=== PATIENT | female | born 1945 | race Caucasian/White ===

== ENCOUNTER → 2016-07-30 | Outpatient (CLI) | payer OTHER ==
[2014-12-04 12:55] VITALS: BP 128/74
--- NOTE | 2016-08-02 09:16 | MRI ---
HISTORY: Chronic low back pain with bilateral facet arthropathy Study: MRI lumbar spine without contrast Comparison: October 22, 2014 Technique: Multiplanar multi-sequence MRI of the lumbar spine was obtained. Sagittal T1, sagittal T 2, and stir weighted images, axial T1, and axial T2 images were obtained. Findings: There is slight anterolisthesis L2 on L3 . The lumbar spine demonstrates otherwise normal alignment with the expected signal characteristics of the bone marrow. The conus of the cord terminates vikram lly. T12 -- L1: No evidence for compressive disc disease. The neural foramina are patent. The joints are normal. L1 -- L2: There is broad-based disc bulging which contributes along with ligamentous hypertrophy and bilateral facet arthropathy to a relative spinal stenosis with lateral recess narrowing bilaterally left worse than right. L2 -- L3: There is slight anterolisthesis L2 on L3 which is associated with broad-based disc bulging and ligamentous hypertrophy and facet arthropathy contributing to a relative spinal stenosis with l ateral recess and foraminal narrowing bilaterally left worse than right. L3 -- L4: No evidence for compressive disc disease. The neural foramina are patent. Bilateral facet arthropathy is present. L4 -- L5: There is partial fusion of the L4 and L5 vertebral bodies with near-complete obliteration of the disc. There is no evidence for compressive disc disease. The neural foramina are patent. The facet joints are partially ankylosed. L5 -- S1: No evidence for compressive disc disease. The neural foramina are patent. The facet joints are ankylosed. IMPRESSION: As above Reported By:
== END ==
LOC: RAD 12:47
PROVIDERS: ATTEND Specialist
DX: M46.89 Other specified inflammatory spondylopathies, multiple sites in spine (principal)
CPT/HCPCS: 72148

== ENCOUNTER → 2016-11-29 | Day surgery (SDC) | payer OTHER ==
[~2016-11-29] MED LIST: KENALOG INJ 40 MG ONE; MARCAINE/EPINEPHRINE ONE; XYLOCAINE-MPF 1% ONE
--- NOTE | 2016-11-29 11:16 | DR.UPDATE ---
H&P Update History and Physical Update: History and Physical reviewed and patient examined. Changes noted: NO Yes with the following:agree with Dr Vogt H&P. will proceed with steroid injecton of right SI joint
[2016-11-29 11:44] VITALS: BP 169/68
== END ==
LOC: SURG1 10:50
PROVIDERS: ATTEND Specialist
PROC: 3E0R3BZ Introduction of Anesthetic Agent into Spinal Canal, Percutaneous Approach (ICD-10-PCS; 2016-11-29)
PROC: 3E0R33Z Introduction of Anti-inflammatory into Spinal Canal, Percutaneous Approach (ICD-10-PCS; principal; 2016-11-29 11:00)
DX: M53.3 Sacrococcygeal disorders, not elsewhere classified (principal)
CPT/HCPCS: S0020; J3301

== ENCOUNTER → 2017-04-21 | Outpatient (CLI) | payer OTHER ==
[2016-11-29 11:44] VITALS: BP 169/68
--- NOTE | 2017-04-21 14:36 | RAD ---
Examination: Chest, PA and lateral views History: Preop Findings: Normal heart size, clear lungs and pleural spaces. Impression: No acute or significant chronic findings. Reported By:
[2017-04-21 14:43] LABS: BILIRUBIN,URINE NEGATIVE (NEGATIVE); BLOOD/HEMOGLOBIN,URINE 2+ (NEGATIVE); GLUCOSE, URINE NEGATIVE (NEGATIVE); KETONES,URINE NEGATIVE (NEGATIVE); LEUKOCYTE ESTERASE ,URINE 1+ (NEGATIVE); NITRITES,URINE POSITIVE (NEGATIVE); PROTEIN,URINE NEGATIVE (NEGATIVE); UROBILINOGEN,URINE NORMAL (NORMAL)
[2017-04-21 14:52] LABS: APPEARANCE,URINE HAZY (CLEAR); BACTERIA,URINE 4+ /HPF (NEGATIVE); COLOR,URINE YELLOW (YELLOW); RBC,URINE 0-2 /HPF (NEGATIVE); SQUAMOUS EPITHELIAL CELL,UR RARE /HPF (NEGATIVE)
[2017-04-21 14:56] LABS: ALANINE AMINOTRANSFERASE 24 Units/L (12-78); ALBUMIN 4.1 g/dL (3.4-5.0); ALKALINE PHOSPHATASE 103 Units/L (46-116); ASPARTATE AMINO TRANSFERASE 14 Units/L (15-37); BLOOD UREA NITROGEN 20 mg/dL (7-18); CALCIUM 9.3 mg/dL (8.5-10.1); CARBON DIOXIDE 28.1 mmol/L (21-32); CHLORIDE 106 mmol/L (98-107); CREATININE 1.22 mg/dL (0.55-1.02); SODIUM 142 mmol/L (136-145); TOTAL PROTEIN 8.2 g/dL (6.4-8.2); eGFR BLACK RACES 56 (>60); eGFR NON BLACK RACES 46 (>60)
[2017-04-21 14:58] LABS: BASOPHILS # (AUTO) 0.1 X10^3/uL (0.0-0.1); BASOPHILS % (AUTO) 1.3 % (0.2-1.0); EOSINOPHILS # (AUTO) 0.1 x10^3/uL (0.0-0.2); HEMATOCRIT 41.5 % (36.0-47.0); HEMOGLOBIN 14.2 g/dL (12.0-16.0); LYMPHOCYTES # (AUTO) 1.9 X10^3/uL (1.3-2.9); LYMPHOCYTES % (AUTO) 22.4 % (21.0-51.0); MEAN CORPUSCULAR HEMOGLOBIN 31.4 pg (27.0-34.0); MEAN CORPUSCULAR HGB CONC 34.2 g/dL (33.0-35.0); MEAN CORPUSCULAR VOLUME 91.7 fL (80.0-100.0); MEAN PLATELET VOLUME 7.2 fL (7.4-11.0); MONOCYTES # (AUTO) 0.5 x10^3/uL (0.3-0.8); MONOCYTES % (AUTO) 6.1 % (0.0-13.0); NEUTROPHILS % (AUTO) 69.2 % (42.0-75.0); PLATELET COUNT 312 X10^3/uL (150.0-450.0); RED BLOOD COUNT 4.52 X10^6/uL (3.5-5.4); RED CELL DISTRIBUTION WIDTH 13.8 % (11.6-16.5); WHITE BLOOD COUNT 8.6 X10^3/uL (3.6-10.0)
[2017-04-21 15:32] LABS: ERYTHROCYTE SEDIMENTATION RATE 17 MM/HOUR (0-20)
== END ==
LOC: LAB 13:59
PROVIDERS: ATTEND Orthopaedic Surgery
DX: Z01.818 Encounter for other preprocedural examination (principal); Z79.899 Other long term (current) drug therapy; Z11.8 Encounter for screening for other infectious and parasitic diseases; Z01.810 Encounter for preprocedural cardiovascular examination; Z01.811 Encounter for preprocedural respiratory examination; M17.12 Unilateral primary osteoarthritis, left knee
CPT/HCPCS: 36415; 71046; 80053; 81001; 85025; 85652; 86140; 86850; 86900; 86901; 87086; 87088; 87186; 87640; 87641; 93005; 93010

== ENCOUNTER → 2017-04-25 | Outpatient (CLI) | payer OTHER ==
[2017-04-25 08:05] VITALS: BMI 26.6
[2017-04-25 08:07] VITALS: BP 152/74
[2017-04-25 08:07] LABS: BILIRUBIN,URINE NEGATIVE (NEGATIVE); BLOOD/HEMOGLOBIN,URINE 1+ (NEGATIVE); GLUCOSE, URINE NEGATIVE (NEGATIVE); KETONES,URINE NEGATIVE (NEGATIVE); LEUKOCYTE ESTERASE ,URINE NEGATIVE (NEGATIVE); NITRITES,URINE NEGATIVE (NEGATIVE); PROTEIN,URINE NEGATIVE (NEGATIVE); UROBILINOGEN,URINE NORMAL (NORMAL)
[2017-04-25 08:18] LABS: APPEARANCE,URINE CLEAR (CLEAR); BACTERIA,URINE NEGATIVE /HPF (NEGATIVE); COLOR,URINE YELLOW (YELLOW); RBC,URINE 0-1 /HPF (NEGATIVE); SQUAMOUS EPITHELIAL CELL,UR FEW /HPF (NEGATIVE)
[2017-04-25 08:19] LABS: HYALINE CASTS, URINE RARE /LPF (NEGATIVE); MUCUS,URINE FEW /HPF (NEGATIVE)
== END ==
LOC: UNDOADMIN 07:31 → MED/SURG 07:31 → LAB 07:32 → EDSTATUS 08:30 → UNDODISIN 09:01
PROVIDERS: ATTEND Internal Medicine
DX: Z01.812 Encounter for preprocedural laboratory examination (principal)
CPT/HCPCS: 81001

== ENCOUNTER → 2017-04-29 | Outpatient (CLI) | payer OTHER ==
[2017-04-25 08:07] VITALS: BP 152/74
[2017-04-29 09:27] LABS: BILIRUBIN,URINE NEGATIVE (NEGATIVE); GLUCOSE, URINE NEGATIVE (NEGATIVE); KETONES,URINE NEGATIVE (NEGATIVE); UROBILINOGEN,URINE NORMAL (NORMAL)
[2017-04-29 09:32] LABS: BLOOD/HEMOGLOBIN,URINE NEGATIVE (NEGATIVE); LEUKOCYTE ESTERASE ,URINE 1+ (NEGATIVE); NITRITES,URINE NEGATIVE (NEGATIVE); PROTEIN,URINE 1+ (NEGATIVE)
[2017-04-29 09:38] LABS: APPEARANCE,URINE CLEAR (CLEAR); COLOR,URINE YELLOW (YELLOW)
== END ==
LOC: LAB 08:25
PROVIDERS: ATTEND Orthopaedic Surgery
DX: Z01.818 Encounter for other preprocedural examination (principal); Z01.812 Encounter for preprocedural laboratory examination; M17.12 Unilateral primary osteoarthritis, left knee
CPT/HCPCS: 81003

== ENCOUNTER 2017-05-02 07:25 | Inpatient (IN) | payer OTHER ==
[2017-05-02] MEDS ORDERED: ANCEF 1 GM IV PREMIX* 1 GM/50 ML BAG IV ONE (07:44)
[2017-05-02] MEDS ORDERED: D5 LR 1000 ML 1,000 ML IV ONE (07:44)
[2017-05-02] MEDS ORDERED: BACTROBAN OINT ONE (07:51)
[2017-05-02] MEDS ORDERED: XYLOCAINE 1% and EPINEPHRINE 1:100,000 ONE (07:51)
[2017-05-02] MEDS ORDERED: MARCAINE 0.25% INJ ONE (07:51)
[2017-05-02 07:57] LABS: BILIRUBIN,URINE NEGATIVE (NEGATIVE); BLOOD/HEMOGLOBIN,URINE NEGATIVE (NEGATIVE); GLUCOSE, URINE NEGATIVE (NEGATIVE); KETONES,URINE NEGATIVE (NEGATIVE); LEUKOCYTE ESTERASE ,URINE NEGATIVE (NEGATIVE); NITRITES,URINE NEGATIVE (NEGATIVE); PROTEIN,URINE NEGATIVE (NEGATIVE); UROBILINOGEN,URINE NORMAL (NORMAL)
[2017-05-02 08:01] LABS: APPEARANCE,URINE CLEAR (CLEAR); COLOR,URINE YELLOW (YELLOW)
[2017-05-02 08:04] LABS: BACTERIA,URINE NEGATIVE /HPF (NEGATIVE); MUCUS,URINE FEW /HPF (NEGATIVE); RBC,URINE 0-1 /HPF (NEGATIVE); SQUAMOUS EPITHELIAL CELL,UR RARE /HPF (NEGATIVE)
[2017-05-02] MEDS ORDERED: MARCAINE 0.5% ONE (08:16)
[2017-05-02 08:18] VITALS: BMI 26.6
[2017-05-02] MEDS ORDERED: KETALAR ONE (08:52)
[2017-05-02] MEDS ORDERED: NS IRRIGATION 3000 ML 3,000 ML with BACITRACIN VIAL 50,000 UNT IR ONE ×4 (09:34)
[2017-05-02] MEDS ORDERED: NS IRRIGATION 1000 ML 1,000 ML with BACITRACIN VIAL 50,000 UNT IR ONE ×2 (09:34)
[2017-05-02] MEDS ORDERED: LR 1000 ML IV 1,000 ML IV ONE (10:36)
[2017-05-02] MEDS ORDERED: MARCAINE 0.5% 52 ML, NS 1000 ML 348 ML IJ PRN ×2 (11:30)
[2017-05-02] MEDS ORDERED: DILAUDID INJ IVP PRN (12:31)
[2017-05-02] MEDS ORDERED: REGLAN INJ 10 MG VIAL IVP PRN (12:31)
[2017-05-02] MEDS ORDERED: ZOFRAN INJ 4 MG VIAL IVP PRN ×2 (12:31→19:34)
[2017-05-02] MEDS ORDERED: PHENERGAN INJ 25 MG IVP PRN (12:31)
[2017-05-02] MEDS ORDERED: BENADRYL INJ 50 MG VIAL IVP PRN (12:31)
[2017-05-02] MEDS ORDERED: ZOFRAN INJ 4 MG VIAL IVP ONE (13:05)
[2017-05-02] MEDS ORDERED: PHENERGAN INJ 25 MG IVP ONE ×2 (13:13→13:18)
[2017-05-02] MEDS ORDERED: XYLOCAINE 2 % (PLAIN) ONE (15:11)
[2017-05-02] MEDS ORDERED: VERSED ONE (15:11)
[2017-05-02] MEDS ORDERED: ZOFRAN INJ 4 MG VIAL ONE (15:11)
[2017-05-02] MEDS ORDERED: EPHEDRINE SULFATE INJ ONE (15:11)
[2017-05-02] MEDS ORDERED: BREVIBLOC ONE (15:11)
[2017-05-02] MEDS: Q PUMP EPI NR (15:24)
[2017-05-02 15:39] LABS: HEMATOCRIT 32.3 % (36.0-47.0); HEMOGLOBIN 10.9 g/dL (12.0-16.0)
[2017-05-02] MEDS: ANCEF 1 GM IV PREMIX* 1 GM/50 ML BAG IV SCH ×2 (16:16→22:30)
[2017-05-02] MEDS: LR 1000 ML IV 1,000 ML IV SCH (16:16)
[2017-05-02] MEDS: MORPHINE SULFATE PCA 30 MG IV PRN (21:04)
--- NOTE | 2017-05-02 23:32 | RAD ---
Two views of the left knee. Indication: Postop evaluation from left knee replacement Findings: There has been placement of a left knee arthroplasty without evidence of hardware complicat ion. There is soft tissue swelling, gas, skin deja and surgical drain within infrapatellar fat con sistent with recent surgery. No acute fracture is identified within the left knee. Impression: Expected postoperative appearance of left knee post total knee replacement. Reported By:
[2017-05-03] MEDS: ANCEF 1 GM IV PREMIX* 1 GM/50 ML BAG IV SCH ×2 (02:47→08:45)
[2017-05-03] MEDS: LR 1000 ML IV 1,000 ML IV SCH ×3 (04:25→18:12)
[2017-05-03 07:26] LABS: BASOPHILS # (AUTO) 0.1 X10^3/uL (0.0-0.1); BASOPHILS % (AUTO) 0.4 % (0.2-1.0); HEMATOCRIT 33.5 % (36.0-47.0); HEMOGLOBIN 11.3 g/dL (12.0-16.0); LYMPHOCYTES # (AUTO) 1.3 X10^3/uL (1.3-2.9); LYMPHOCYTES % (AUTO) 8.9 % (21.0-51.0); MEAN CORPUSCULAR HEMOGLOBIN 30.9 pg (27.0-34.0); MEAN CORPUSCULAR HGB CONC 33.8 g/dL (33.0-35.0); MEAN CORPUSCULAR VOLUME 91.5 fL (80.0-100.0); MEAN PLATELET VOLUME 7.8 fL (7.4-11.0); MONOCYTES # (AUTO) 1.4 x10^3/uL (0.3-0.8); MONOCYTES % (AUTO) 9.6 % (0.0-13.0); NEUTROPHILS # (AUTO) 11.8 x10^3/uL (2.2-4.8); NEUTROPHILS % (AUTO) 81.1 % (42.0-75.0); PLATELET COUNT 237 X10^3/uL (150.0-450.0); RED BLOOD COUNT 3.66 X10^6/uL (3.5-5.4); RED CELL DISTRIBUTION WIDTH 13.7 % (11.6-16.5); WHITE BLOOD COUNT 14.6 X10^3/uL (3.6-10.0)
[2017-05-03 07:30] LABS: BLOOD UREA NITROGEN 16 mg/dL (7-18); CALCIUM 8.6 mg/dL (8.5-10.1); CARBON DIOXIDE 25.1 mmol/L (21-32); CHLORIDE 106 mmol/L (98-107); COR NA(FOR HYPERGLY) 140 mmol/L (136-145); CREATININE 1.02 mg/dL (0.55-1.02); SODIUM 139 mmol/L (136-145); eGFR BLACK RACES > 60 (>60); eGFR NON BLACK RACES 57 (>60)
[2017-05-03] MEDS: MORPHINE SULFATE PCA 30 MG IV PRN (08:51)
[2017-05-03] MEDS ORDERED: ZOLOFT PO ONE ×2 (11:40→21:07)
[2017-05-03] MEDS: ZOLOFT PO SCH ×2 (12:23→21:34)
[2017-05-03] MEDS: Q PUMP EPI NR (12:23)
--- NOTE | 2017-05-03 13:48 | PCM.PROG ---
Progress Note - Progress Note for Day of Date: 05/03/17 (POD 1) - Subjective Subjective: Mrs. Sotelo is postop day 1 today. she is doing very well Yesterday during the recovery period she had some issues with hypo-tension as well as Hypothermia. those have improved sinc and she is normotensive a normothermic at this time. Her pain is well controlled at this time. he is currently on a morphine [employer]. LEFT knee is minimally swollen, as expected for a total knee. No redness, warmth. Dressing clean and Dry. Drain in place. She has been scheduled For physical therapy. - Past Medical Family Social History Allergies: Allergies codeine Allergy (Verified 05/02/17 15:21) meloxicam Allergy (Verified 05/02/17 15:21) prochlorperazine Allergy (Verified 05/02/17 15:21) Sulfa (Sulfonamide Antibiotics) Allergy (Verified 05/02/17 15:21) - Vital Signs and I&O's Vital Signs: Temperature 98.2 F Pulse Rate [Left Brachial] 91 Pulse Rate 60 Respiratory Rate 18 Blood Pressure [Left Arm] 118/57 Blood Pressure 107/51 O2 Sat by Pulse Oximetry 95 Intake and Output: Intake & Output 05/01/17 05/02/17 05/03/17 05/04/17 11:59 11:59 11:59 11:59 Intake Total 1165 Output Total 2100 670 Balance -2100 495 - Physical Exam Mood Description: Calm Speech Pattern: Clear - Laboratory and Diagnostics Result Diagrams: 05/03/17 07:14 05/03/17 07:14 Labs: Laboratory WBC 14.6 X10^3/uL (3.6-10.0) H 05/03/17 07:14 RBC 3.66 X10^6/uL (3.5-5.4) 05/03/17 07:14 Hgb 11.3 g/dL (12.0-16.0) L 05/03/17 07:14 Hct 33.5 % (36.0-47.0) L 05/03/17 07:14 MCV 91.5 fL (80.0-100.0) 05/03/17 07:14 MCH 30.9 pg (27.0-34.0) 05/03/17 07:14 MCHC 33.8 g/dL (33.0-35.0) 05/03/17 07:14 RDW 13.7 % (11.6-16.5) 05/03/17 07:14 Plt Count 237 X10^3/uL (150.0-450.0) 05/03/17 07:14 MPV 7.8 fL (7.4-11.0) 05/03/17 07:14 Neut % 81.1 % (42.0-75.0) H 05/03/17 07:14 Lymph % 8.9 % (21.0-51.0) L 05/03/17 07:14 [place] % 9.6 % (0.0-13.0) 05/03/17 07:14 Eos % 0.0 % (0.9-2.9) L 05/03/17 07:14 Baso % 0.4 % (0.2-1.0) 05/03/17 07:14 Neut # 11.8 x10^3/uL (2.2-4.8) H 05/03/17 07:14 Lymph # 1.3 X10^3/uL (1.3-2.9) 05/03/17 07:14 [place] # 1.4 x10^3/uL (0.3-0.8) H 05/03/17 07:14 Eos # 0.0 x10^3/uL (0.0-0.2) 05/03/17 07:14 Baso # 0.1 X10^3/uL (0.0-0.1) 05/03/17 07:14 Absolute Nucleated RBC 0.0 /100WBC 05/03/17 07:14 Sodium 139 mmol/L (136-145) 05/03/17 07:14 Corrected Sodium 140 mmol/L (136-145) 05/03/17 07:14 Potassium 4.2 mmol/L (3.5-5.1) 05/03/17 07:14 Chloride 106 mmol/L (98-107) 05/03/17 07:14 Carbon Dioxide 25.1 mmol/L (21-32) 05/03/17 07:14 BUN 16 mg/dL (7-18) 05/03/17 07:14 Creatinine 1.02 mg/dL (0.55-1.02) 05/03/17 07:14 Est GFR (MDRD) Af Amer > 60 (>60) 05/03/17 07:14 Est GFR (MDRD) Non-Af 57 (>60) L 05/03/17 07:14 Glucose 134 mg/dL (65-99) H 05/03/17 07:14 Calcium 8.6 mg/dL (8.5-10.1) 05/03/17 07:14 Specimen Type Clean catch urine 05/02/17 07:47 Urine Color Yellow (YELLOW) 05/02/17 07:47 Urine Appearance Clear (CLEAR) 05/02/17 07:47 Urine pH 5.0 (5.0 - 8.0) 05/02/17 07:47 Ur Specific [place] 1.015 (1.000-1.030) 05/02/17 07:47 Urine Protein Negative (NEGATIVE) 05/02/17 07:47 Urine Glucose (UA) Negative (NEGATIVE) 05/02/17 07:47 Urine Ketones Negative (NEGATIVE) 05/02/17 07:47 Urine Occult Blood Negative (NEGATIVE) 05/02/17 07:47 Urine Nitrite Negative (NEGATIVE) 05/02/17 07:47 Urine Bilirubin Negative (NEGATIVE) 05/02/17 07:47 Urine Urobilinogen Normal (NORMAL) 05/02/17 07:47 Ur Leukocyte Esterase Negative (NEGATIVE) 05/02/17 07:47 Urine RBC 0-1 /HPF (NEGATIVE) 05/02/17 07:47 Urine WBC 0-3 /HPF (NEGATIVE) 05/02/17 07:47 Ur Squamous Epith Cells Rare /HPF (NEGATIVE) 05/02/17 07:47 Urine Bacteria Negative /HPF (NEGATIVE) 05/02/17 07:47 Urine Mucus Few /HPF (NEGATIVE) 05/02/17 07:47 Ur Culture Indicated? No/not indicated 05/02/17 07:47 - Plan (1) Status post total left knee replacement Status: Acute Plan: 1. We will transition her by mouth pain meds scheduled with IV morphine for breakthrough pain. 2. Physical therapy with full weightbearing/ weightbearing as tolerat/range of motion and stren Strengthening exercis. 3. We will remove the drain tomorrow. 4. rn women services to plan on her care after the discharge. We plan on discharging Her on Tuesday. 5.medical treatment per QUAN Brennan.
--- NOTE | 2017-05-03 14:04 | OR.GENERIC ---
Post-Op Note Generic - Post-Op Note Operative Report: PREOPERATIVE DIAGNOSIS: Degenerative arthritis of the LEFT knee. POSTOPERATIVE DIAGNOSIS: Degenerative arthritis of the LEFT knee. PROCEDURE PERFORMED: LEFT total knee replacement BLOOD LOSS: 250 cc. ANESTHESIA: General /With epidural IMPLANT USED FOR PROCEDURE: Sheila Triathlon size 4 femur on the left with #3 size peg tibial tray, a #11 mm polyethylene insert and this a Posterior stabilized component. 31 size patella. GROSS INTRAOPERATIVE FINDINGS: Degenerative walls of three compartments of the trochlea, the medial, as well as the lateral femoral condyles as well was the plateau. HISTORY: This is a 71-year-old female with complaints of LEFT knee pain for several years and increased intensity in the past several months where it has affected her activities of daily living. She attempted conservative treatment, which includes anti-inflammatory medications as well as cortisone and Synvisc. This has only provided her with temporary relief. It is for that reason, she elected to undergo the above-named procedure. All risks as well as complications were discussed with the patient, which include, but are not limited to infection, deep vein thrombosis, pulmonary embolism, need for further surgery, periprosthetic fracture, loosening and further pain. she has agreed to undergo this procedure and a consent was obtained preoperatively. Preoperative-patient was seen in the preop holding area. Consent was revisited. History and physical was taken. Her labs and chest x-ray was done were reviewed. No abnormalities were noted. She got a appropriate antibiotic. Procedure was again discussed with him. Postoperative course of action was discussed with him. Consent was again discussed with them. Complications including but not limited to infection, osteomyelitis, stiffness, persistent pain, need for revision, ostial lysis, loosening, fractures, instability, patella issues were few of the complications which are 6 discussed with them. They understood and verbalized the same. She got an epidural anesthesia with a catheter placed in. PROCEDURE: The patient was wheeled back to operating room and was placed supine on the operating room table. patient was placed under general anesthesia , endotracheal intubation was completed successfully. Reagan catheter was placed under sterile conditions.At this time, a nonsterile tourniquet was placed on the LEFT upper thigh, but not inflated. LEFT lower limb prepped and draped. Skin incision marked. An Esmarch was used to exsanguinate and the tourniquet was inflated on the LEFT thigh. The tourniquet was then inflated to 325 mmHg. At this time, a standard midline incision was made. medial parapatellar arthrotomy was completed. medial release of proximl tibia, fat pad excision, ant femoral synovium excision was ompleted. Medail and lateral meniscua and ACL and PCL was excised.the patella was everted. At this time with a better exposure of the proximal tibia, we placed external tibial guide. This was placed with longitudinal axis of the tibia and carefully positioned in order to obtain an optimal cut for the proximal tibia. At this time with careful soft tissue retraction and protection, an oscillating saw was used to make a proximal tibial osteotomy. Prior to the osteotomy, the cut was checked with a depth gauge in order to assure appropriate bony resection. At this time, I then used a drill to cannulate the distal femoral canal in order to place the intramedullary guide. Distal femroal osteotomy was completed. extension gap was checked and found to be quadrilateral. Alignment beto was placed from hip to ankle which showed satisfactory placement. The femoral size was determined to be siz 4 femur . Epicondylar axis was determined. 4 in 1 block placed and bone cuts complted. posterior osteophytes removed with osteotome and curette. box cut finished. The block was then removed and an osteotome was then used to remove all the bony cut pieces. flexion gap was checked and was found to be equal to the extension gap.the rest of the tibia was prepared with an flange as well as intramedullary part. Once this was removed, we then implanted our trial components of size 3 to the femur and a size 3 mm tibial tray with 11 mm plastic articulating surface. The knee was taken through range of motion and revealed excellent femorotibial articulation. The patella was prepared free hand and its inital thickness maintained. At this time, the prosthesis was removed. we then copiously irrigated the wound and then suctioned it dry to get ready and prepped for cementation of the drilled components. thecocktail was injected into the back of the knee as well as aroundthe soft tissue and periosteum. At this time, polymethyl methacrylate cement was then mixed. The cement was placed on the tibial surface as well as the underneath surface of the component. The component was then placed and impacted with excess cement removed. In a similar fashion, the femoral and atellar component was also placed. A 11 mm plastic tray was then placed and the leg held in full extension and compression in order to obtain adequate bony cement content. Once the cement was fully hardened, the knee was flexed and a small osteotome was used to remove any extruding cement from around the prosthesis of the bone. Once this was performed, copious irrigation was used to irrigate the wound and the wound was then suctioned dry. We decided to go with a #11 mm polyethylene tray. At this time, this was placed to the tibial articulation and then left in place. This was rechecked with careful attention to detail with checking no soft tissue interpositioned between the polyethylene tray and the metal tray of the tibia. The knee was again taken through range of motion and revealed excellent tracking of the patella with good femur and tibial contact. At this time, the knee was irrigated and copiously suction dried. A tight capsular closure was performed. This was reinforced with a #1-0 intruppted Vicryl suture. At this time, the knee was again taken through range of motion to assure tight capsular closure. At this time, copious irrigation was used to irrigate the superficial wound. #2-0 Vicryl was used to approximate the wound with [id number] inverted suture. The skin was then approximated with deja. The leg was then cleansed. Sterile dressing consisting of Adaptic, 4x4 , ABDs, and Kerlix roll were then applied. At this time, the patient was extubated and transferred to recovery in stable condition. Prognosis is good for this patient.post op xrays were satisfactory.she has come out positive for influenza. Chest x-ray shows minimal infiltration on the LEFT lower lobe. We will start her on levofloxacin, get sputum cultures, pulmonary consult.
[2017-05-03] MEDS: PERCOCET TAB 5/325 MG PO PRN (17:46)
[2017-05-03] MEDS: MILK OF MAGNESIA PO SCH (21:34)
[2017-05-03] MEDS: KLONOPIN TAB 1 MG PO SCH (21:34)
[2017-05-03] MEDS: MORPHINE SULFATE INJ 2 MG INJ IVP PRN (21:34)
[2017-05-03] MEDS: COLACE CAP 100 MG PO SCH (21:34)
[2017-05-03] MEDS: LOVENOX INJ 30 MG SYR SC SCH (21:35)
[2017-05-04] MEDS: PERCOCET TAB 5/325 MG PO PRN ×2 (02:47→06:50)
[2017-05-04] MEDS: MORPHINE SULFATE INJ 2 MG INJ IVP PRN ×2 (04:33→08:57)
[2017-05-04] MEDS: LR 1000 ML IV 1,000 ML IV SCH ×3 (06:17→20:33)
[2017-05-04 07:10] LABS: BLOOD UREA NITROGEN 14 mg/dL (7-18); CALCIUM 9.1 mg/dL (8.5-10.1); CARBON DIOXIDE 25.6 mmol/L (21-32); CHLORIDE 105 mmol/L (98-107); COR NA(FOR HYPERGLY) 140 mmol/L (136-145); CREATININE 0.92 mg/dL (0.55-1.02); SODIUM 139 mmol/L (136-145); eGFR BLACK RACES > 60 (>60); eGFR NON BLACK RACES > 60 (>60)
[2017-05-04 07:24] LABS: BASOPHILS % (AUTO) 0.2 % (0.2-1.0); EOSINOPHILS % (AUTO) 0.1 % (0.9-2.9); HEMATOCRIT 30.5 % (36.0-47.0); HEMOGLOBIN 10.5 g/dL (12.0-16.0); LYMPHOCYTES # (AUTO) 1.3 X10^3/uL (1.3-2.9); LYMPHOCYTES % (AUTO) 8.8 % (21.0-51.0); MEAN CORPUSCULAR HEMOGLOBIN 31.2 pg (27.0-34.0); MEAN CORPUSCULAR HGB CONC 34.3 g/dL (33.0-35.0); MEAN CORPUSCULAR VOLUME 91.1 fL (80.0-100.0); MEAN PLATELET VOLUME 8.6 fL (7.4-11.0); MONOCYTES # (AUTO) 1.1 x10^3/uL (0.3-0.8); MONOCYTES % (AUTO) 7.5 % (0.0-13.0); NEUTROPHILS # (AUTO) 12.7 x10^3/uL (2.2-4.8); NEUTROPHILS % (AUTO) 83.4 % (42.0-75.0); PLATELET COUNT 203 X10^3/uL (150.0-450.0); RED BLOOD COUNT 3.35 X10^6/uL (3.5-5.4); RED CELL DISTRIBUTION WIDTH 13.7 % (11.6-16.5); WHITE BLOOD COUNT 15.2 X10^3/uL (3.6-10.0)
[2017-05-04] MEDS ORDERED: ZOLOFT PO ONE ×2 (07:59→20:14)
[2017-05-04] MEDS: KLONOPIN TAB 1 MG PO SCH ×2 (08:07→20:32)
[2017-05-04] MEDS: MILK OF MAGNESIA PO SCH ×2 (08:08→20:34)
[2017-05-04] MEDS: ZOLOFT PO SCH ×2 (09:47→20:34)
[2017-05-04] MEDS ORDERED: NORCO 10/325 TAB PO PRN (10:44)
[2017-05-04] MEDS ORDERED: ZANAFLEX PO PRN (10:48)
[2017-05-04] MEDS ORDERED: MOTRIN TAB 800 MG PO PRN (10:50)
[2017-05-04] MEDS ORDERED: ROXICODONE TAB 5 MG PO PRN (10:53)
[2017-05-04] MEDS: DILAUDID INJ IVP PRN ×2 (10:58→20:33)
--- NOTE | 2017-05-04 12:35 | RAD ---
HISTORY: Postop left knee Study: Three-view left knee Comparison: 05/02/2017. Technique: AP, oblique and lateral views of the left knee are provided. Findings: The drain has been removed. Left total knee arthroplasty is again seen with femoral, tibial patellar components. No fracture, dislocation or prosthetic loosening is seen. There is no evidence of joint e ffusion. Anterior midline skin clips are present. IMPRESSION: As above. Reported By:
--- NOTE | 2017-05-04 13:57 | RAD ---
History: Preop preop for knee surgery Study: Chest single view portable Findings: Single AP portable view of the chest is compared to the study of 04/21/2017. Heart and medi astinal structures are unchanged in appearance. Lungs and pleural spaces are clear. Osseous structure s appear intact. Impression: No change in the appearance of the chest and no evidence of acute disease. Reported By:
--- NOTE | 2017-05-04 19:36 | PCM.PROG ---
Progress Note - Progress Note for Day of Date: 05/03/17 - Subjective Subjective: IS STATUS POST LEFT TOTAL KNEE REPLACEMENT. CONSULTED US FOR MEDICAL CARE. TODAY, SHE IS ALERT AND ORIENTED, LYING IN BED ON MORNING ROUNDS. SHE IS NOTED WITH COMPLAINTS OF GENERALIZED WEAKNESS AND LEFT KNEE PAIN. ON EXAMINATION, HEART IS REGULAR IN RATE AND RHYTHM. BILATERAL LUNGS ARE NOTED TO BE CLEAR TO AUSCULTATION. ABDOMEN IS ROUND, SOFT, AND NON- TENDER WITH NORMAL BOWEL SOUNDS NOTED IN ALL QUADRANTS. LEFT KNEE IS NOTED WITH A SURGICAL DRESSING. DRESSING IS DRY AND INTACT WITH NO SIGNS OR SX INFECTION NOTED TO SITE. HER VITALS THIS MORNING ARE 98.0-91-18-95%-18/57. LABS WERE OBTAINED THIS MORNING. ABNORMAL LAB VALUES INCLUDE THE FOLLOWING: WBC 14.6, HGB 11.3, HCT 33.5, GLUCOSE 134. PHYSICAL THERAPY REPORTS THAT PATIENT IS COOPERATING WELL. SHE IS AMBULATING WELL WITH ASSISTANCE OF STAFF AND WALKER. SHE CONTINUES ON ORAL AND IV PAIN MEDICACTION. WE WILL CONTINUE WITH CURRENT PLAN OF CARE TODAY. WE WILL FOLLOW UP WITH AM LABS AND CONTINUE TO MONITOR PATIENT. - Past Medical Family Social History Past Med/Fam/Surg Hx: No changes since H&P Allergies: Allergies codeine Allergy (Verified 05/02/17 15:21) meloxicam Allergy (Verified 05/02/17 15:21) prochlorperazine Allergy (Verified 05/02/17 15:21) Sulfa (Sulfonamide Antibiotics) Allergy (Verified 05/02/17 15:21) - Review of Systems ROS: No change since H&P - Vital Signs and I&O's Vital Signs: Temperature 98 F Pulse Rate [Left Brachial] 87 Pulse Rate 92 Respiratory Rate 18 Blood Pressure [Left Arm] 156/68 Blood Pressure 107/51 O2 Sat by Pulse Oximetry 94 Intake and Output: Intake & Output 05/02/17 05/03/17 05/04/17 05/05/17 11:59 11:59 11:59 11:59 Intake Total 1165 2475 320 Output Total 2100 514 150 Balance -2100 495 2325 320 - Physical Exam Oriented: Normal Eyes: Normal Ear: Normal Nose: Normal Throat: Normal Respiratory: Normal Cardiovascular: Normal : Normal Auscultation: Bowel Sounds: Normal Palpation: Normal Tenderness: Normal Skin: Wound (LEFT KNEE SURGICAL WOUND ) Musculoskeletal: Normal, Left, Knee, Instability Psychiatric: Normal Mood Description: Calm Affect: Normal Speech Pattern: Clear, Appropriate - Laboratory and Diagnostics Result Diagrams: 05/04/17 05:54 05/04/17 05:54 Labs: Laboratory WBC 15.2 X10^3/uL (3.6-10.0) H 05/04/17 05:54 RBC 3.35 X10^6/uL (3.5-5.4) L 05/04/17 05:54 Hgb 10.5 g/dL (12.0-16.0) L 05/04/17 05:54 Hct 30.5 % (36.0-47.0) L 05/04/17 05:54 MCV 91.1 fL (80.0-100.0) 05/04/17 05:54 MCH 31.2 pg (27.0-34.0) 05/04/17 05:54 MCHC 34.3 g/dL (33.0-35.0) 05/04/17 05:54 RDW 13.7 % (11.6-16.5) 05/04/17 05:54 Plt Count 203 X10^3/uL (150.0-450.0) 05/04/17 05:54 MPV 8.6 fL (7.4-11.0) 05/04/17 05:54 Neut % 83.4 % (42.0-75.0) H 05/04/17 05:54 Lymph % 8.8 % (21.0-51.0) L 05/04/17 05:54 [place] % 7.5 % (0.0-13.0) 05/04/17 05:54 Eos % 0.1 % (0.9-2.9) L 05/04/17 05:54 Baso % 0.2 % (0.2-1.0) 05/04/17 05:54 Neut # 12.7 x10^3/uL (2.2-4.8) H 05/04/17 05:54 Lymph # 1.3 X10^3/uL (1.3-2.9) 05/04/17 05:54 [place] # 1.1 x10^3/uL (0.3-0.8) H 05/04/17 05:54 Eos # 0.0 x10^3/uL (0.0-0.2) 05/04/17 05:54 Baso # 0.0 X10^3/uL (0.0-0.1) 05/04/17 05:54 Absolute Nucleated RBC 0.0 /100WBC 05/04/17 05:54 Sodium 139 mmol/L (136-145) 05/04/17 05:54 Corrected Sodium 140 mmol/L (136-145) 05/04/17 05:54 Potassium 3.7 mmol/L (3.5-5.1) 05/04/17 05:54 Chloride 105 mmol/L (98-107) 05/04/17 05:54 Carbon Dioxide 25.6 mmol/L (21-32) 05/04/17 05:54 BUN 14 mg/dL (7-18) 05/04/17 05:54 Creatinine 0.92 mg/dL (0.55-1.02) 05/04/17 05:54 Est GFR (MDRD) Af Amer > 60 (>60) 05/04/17 05:54 Est GFR (MDRD) Non-Af > 60 (>60) 05/04/17 05:54 Glucose 123 mg/dL (65-99) H 05/04/17 05:54 Calcium 9.1 mg/dL (8.5-10.1) 05/04/17 05:54 Specimen Type Clean catch urine 05/02/17 07:47 Urine Color Yellow (YELLOW) 05/02/17 07:47 Urine Appearance Clear (CLEAR) 05/02/17 07:47 Urine pH 5.0 (5.0 - 8.0) 05/02/17 07:47 Ur Specific [place] 1.015 (1.000-1.030) 05/02/17 07:47 Urine Protein Negative (NEGATIVE) 05/02/17 07:47 Urine Glucose (UA) Negative (NEGATIVE) 05/02/17 07:47 Urine Ketones Negative (NEGATIVE) 05/02/17 07:47 Urine Occult Blood Negative (NEGATIVE) 05/02/17 07:47 Urine Nitrite Negative (NEGATIVE) 05/02/17 07:47 Urine Bilirubin Negative (NEGATIVE) 05/02/17 07:47 Urine Urobilinogen Normal (NORMAL) 05/02/17 07:47 Ur Leukocyte Esterase Negative (NEGATIVE) 05/02/17 07:47 Urine RBC 0-1 /HPF (NEGATIVE) 05/02/17 07:47 Urine WBC 0-3 /HPF (NEGATIVE) 05/02/17 07:47 Ur Squamous Epith Cells Rare /HPF (NEGATIVE) 05/02/17 07:47 Urine Bacteria Negative /HPF (NEGATIVE) 05/02/17 07:47 Urine Mucus Few /HPF (NEGATIVE) 05/02/17 07:47 Ur Culture Indicated? No/not indicated 05/02/17 07:47 - Plan (1) Status post total left knee replacement Status: Acute Plan: 1. We will transition her by mouth pain meds scheduled with IV morphine for breakthrough pain. 2. Physical therapy with full weightbearing/ weightbearing as tolerat/range of motion and stren Strengthening exercis. 3. We will remove the drain tomorrow. 4. social services to plan on her care after the discharge. We plan on discharging Her on Tuesday. 5.medical treatment per QUAN Brennan.
[2017-05-04] MEDS: LOVENOX INJ 30 MG SYR SC SCH (20:33)
[2017-05-04] MEDS: COLACE CAP 100 MG PO SCH (20:33)
[2017-05-05] MEDS: LR 1000 ML IV 1,000 ML IV SCH ×3 (04:02→23:00)
[2017-05-05] MEDS: DILAUDID INJ IVP PRN (04:02)
[2017-05-05 06:09] LABS: BLOOD UREA NITROGEN 16 mg/dL (7-18); CALCIUM 8.7 mg/dL (8.5-10.1); CARBON DIOXIDE 28.9 mmol/L (21-32); CHLORIDE 106 mmol/L (98-107); COR NA(FOR HYPERGLY) 140 mmol/L (136-145); CREATININE 0.86 mg/dL (0.55-1.02); SODIUM 140 mmol/L (136-145); eGFR BLACK RACES > 60 (>60); eGFR NON BLACK RACES > 60 (>60)
[2017-05-05 06:15] LABS: BASOPHILS % (AUTO) 0.3 % (0.2-1.0); EOSINOPHILS % (AUTO) 0.3 % (0.9-2.9); HEMATOCRIT 26.8 % (36.0-47.0); HEMOGLOBIN 9.3 g/dL (12.0-16.0); LYMPHOCYTES # (AUTO) 1.2 X10^3/uL (1.3-2.9); LYMPHOCYTES % (AUTO) 8.9 % (21.0-51.0); MEAN CORPUSCULAR HEMOGLOBIN 31.3 pg (27.0-34.0); MEAN CORPUSCULAR HGB CONC 34.5 g/dL (33.0-35.0); MEAN CORPUSCULAR VOLUME 90.6 fL (80.0-100.0); MONOCYTES # (AUTO) 0.8 x10^3/uL (0.3-0.8); MONOCYTES % (AUTO) 5.9 % (0.0-13.0); NEUTROPHILS # (AUTO) 11.2 x10^3/uL (2.2-4.8); NEUTROPHILS % (AUTO) 84.6 % (42.0-75.0); PLATELET COUNT 209 X10^3/uL (150.0-450.0); RED BLOOD COUNT 2.96 X10^6/uL (3.5-5.4); WHITE BLOOD COUNT 13.2 X10^3/uL (3.6-10.0)
[2017-05-05 07:40] LABS: BILIRUBIN,URINE NEGATIVE (NEGATIVE); BLOOD/HEMOGLOBIN,URINE 1+ (NEGATIVE); GLUCOSE, URINE NEGATIVE (NEGATIVE); KETONES,URINE 2+ (NEGATIVE); LEUKOCYTE ESTERASE ,URINE NEGATIVE (NEGATIVE); NITRITES,URINE NEGATIVE (NEGATIVE); PROTEIN,URINE 2+ (NEGATIVE); UROBILINOGEN,URINE NORMAL (NORMAL)
[2017-05-05 08:05] LABS: APPEARANCE,URINE HAZY (CLEAR); COLOR,URINE YELLOW (YELLOW); RBC,URINE 0-2 /HPF (NEGATIVE)
[2017-05-05 08:06] LABS: BACTERIA,URINE NEGATIVE /HPF (NEGATIVE); MUCUS,URINE MODERATE /HPF (NEGATIVE); SQUAMOUS EPITHELIAL CELL,UR RARE /HPF (NEGATIVE)
[2017-05-05] MEDS ORDERED: ZOLOFT PO ONE ×2 (08:30→21:08)
[2017-05-05] MEDS: MILK OF MAGNESIA PO SCH ×2 (09:11→21:26)
[2017-05-05] MEDS: KLONOPIN TAB 1 MG PO SCH ×2 (09:11→21:27)
[2017-05-05] MEDS: ZOLOFT PO SCH ×2 (09:15→21:27)
[2017-05-05] MEDS: PERCOCET TAB 5/325 MG PO PRN ×2 (13:34→23:50)
[2017-05-05] MEDS: NORVASC TAB 10 MG PO SCH (13:35)
--- NOTE | 2017-05-05 14:04 | PCM.PROG ---
Progress Note - Progress Note for Day of Date: 05/05/17 - Subjective Subjective: Mrs. Sotelo is postoperative day 3 today. She seems to be doing much better today. She reports her pain is very well controlled with by mouth pain medications. she did well with physical therapy today. She is afebrile. Her hemoglobin has been around 10. Dressing is clean and dry. - Past Medical Family Social History Past Med/Fam/Surg Hx: No changes since H&P Allergies: Allergies codeine Allergy (Verified 05/02/17 15:21) meloxicam Allergy (Verified 05/02/17 15:21) prochlorperazine Allergy (Verified 05/02/17 15:21) Sulfa (Sulfonamide Antibiotics) Allergy (Verified 05/02/17 15:21) - Review of Systems ROS: No change since H&P - Vital Signs and I&O's Vital Signs: Temperature 98.6 F Pulse Rate [Right Brachial] 87 Pulse Rate [Left Brachial] 102 Pulse Rate 88 Respiratory Rate 20 Blood Pressure [Right Arm] 134/62 Blood Pressure [Left Arm] 185/79 Blood Pressure 107/51 O2 Sat by Pulse Oximetry 92 Intake and Output: Intake & Output 05/03/17 05/04/17 05/05/17 05/06/17 11:59 11:59 11:59 11:59 Intake Total 1165 2475 1760 Output Total 670 150 Balance 495 2325 1760 - Physical Exam Oriented: Normal Eyes: Normal Ear: Normal Nose: Normal Throat: Normal Respiratory: Normal Cardiovascular: Normal : Normal Auscultation: Bowel Sounds: Normal Tenderness: Normal Skin: Wound (LEFT KNEE SURGICAL WOUND ) Musculoskeletal: Normal, Left, Knee, Instability Psychiatric: Normal Mood Description: Calm Affect: Normal Speech Pattern: Clear, Appropriate - Laboratory and Diagnostics Result Diagrams: 05/05/17 05:21 05/05/17 05:21 Labs: Laboratory WBC 13.2 X10^3/uL (3.6-10.0) H 05/05/17 05:21 RBC 2.96 X10^6/uL (3.5-5.4) L 05/05/17 05:21 Hgb 9.3 g/dL (12.0-16.0) L 05/05/17 05:21 Hct 26.8 % (36.0-47.0) L 05/05/17 05:21 MCV 90.6 fL (80.0-100.0) 05/05/17 05:21 MCH 31.3 pg (27.0-34.0) 05/05/17 05:21 MCHC 34.5 g/dL (33.0-35.0) 05/05/17 05:21 RDW 14.0 % (11.6-16.5) 05/05/17 05:21 Plt Count 209 X10^3/uL (150.0-450.0) 05/05/17 05:21 MPV 8.0 fL (7.4-11.0) 05/05/17 05:21 Neut % 84.6 % (42.0-75.0) H 05/05/17 05:21 Lymph % 8.9 % (21.0-51.0) L 05/05/17 05:21 [place] % 5.9 % (0.0-13.0) 05/05/17 05:21 Eos % 0.3 % (0.9-2.9) L 05/05/17 05:21 Baso % 0.3 % (0.2-1.0) 05/05/17 05:21 Neut # 11.2 x10^3/uL (2.2-4.8) H 05/05/17 05:21 Lymph # 1.2 X10^3/uL (1.3-2.9) L 05/05/17 05:21 [place] # 0.8 x10^3/uL (0.3-0.8) 05/05/17 05:21 Eos # 0.0 x10^3/uL (0.0-0.2) 05/05/17 05:21 Baso # 0.0 X10^3/uL (0.0-0.1) 05/05/17 05:21 Absolute Nucleated RBC 0.0 /100WBC 05/05/17 05:21 Sodium 140 mmol/L (136-145) 05/05/17 05:21 Corrected Sodium 140 mmol/L (136-145) 05/05/17 05:21 Potassium 4.2 mmol/L (3.5-5.1) 05/05/17 05:21 Chloride 106 mmol/L (98-107) 05/05/17 05:21 Carbon Dioxide 28.9 mmol/L (21-32) 05/05/17 05:21 BUN 16 mg/dL (7-18) 05/05/17 05:21 Creatinine 0.86 mg/dL (0.55-1.02) 05/05/17 05:21 Est GFR (MDRD) Af Amer > 60 (>60) 05/05/17 05:21 Est GFR (MDRD) Non-Af > 60 (>60) 05/05/17 05:21 Glucose 112 mg/dL (65-99) H 05/05/17 05:21 Calcium 8.7 mg/dL (8.5-10.1) 05/05/17 05:21 Specimen Type Clean catch urine 05/05/17 07:34 Urine Color Yellow (YELLOW) 05/05/17 07:34 Urine Appearance Hazy (CLEAR) 05/05/17 07:34 Urine pH 5.0 (5.0 - 8.0) 05/05/17 07:34 Ur Specific [place] 1.020 (1.000-1.030) 05/05/17 07:34 Urine Protein 2+ (NEGATIVE) 05/05/17 07:34 Urine Glucose (UA) Negative (NEGATIVE) 05/05/17 07:34 Urine Ketones 2+ (NEGATIVE) 05/05/17 07:34 Urine Occult Blood 1+ (NEGATIVE) 05/05/17 07:34 Urine Nitrite Negative (NEGATIVE) 05/05/17 07:34 Urine Bilirubin Negative (NEGATIVE) 05/05/17 07:34 Urine Urobilinogen Normal (NORMAL) 05/05/17 07:34 Ur Leukocyte Esterase Negative (NEGATIVE) 05/05/17 07:34 Urine RBC 0-2 /HPF (NEGATIVE) 05/05/17 07:34 Urine WBC 0-2 /HPF (NEGATIVE) 05/05/17 07:34 Ur Squamous Epith Cells Rare /HPF (NEGATIVE) 05/05/17 07:34 Urine Bacteria Negative /HPF (NEGATIVE) 05/05/17 07:34 Urine Mucus Moderate /HPF (NEGATIVE) 05/05/17 07:34 Ur Culture Indicated? Yes/culture set up 05/05/17 07:34 - Plan (1) Status post total left knee replacement Status: Acute Plan: she will need continued physical therapy , to a stage where she could be able to take care of her self on a daily basis. Currently she lacks support at home. We will plan to change her status to a swing bed where she can get to physical therapy on a continuous basis.
[2017-05-05] MEDS ORDERED: POLYMYXIN B SULFATE ONE (14:53)
[2017-05-05] MEDS ORDERED: DIPRIVAN VIAL ONE (14:54)
[2017-05-05] MEDS ORDERED: KETALAR ONE (14:54)
[2017-05-05] MEDS: COLACE CAP 100 MG PO SCH (21:26)
[2017-05-05] MEDS: MORPHINE SULFATE INJ 2 MG INJ IVP PRN (21:27)
[2017-05-05] MEDS: LOVENOX INJ 30 MG SYR SC SCH (21:27)
[2017-05-06 05:34] LABS: BASOPHILS % (AUTO) 0.4 % (0.2-1.0); EOSINOPHILS # (AUTO) 0.1 x10^3/uL (0.0-0.2); EOSINOPHILS % (AUTO) 1.4 % (0.9-2.9); HEMATOCRIT 25.4 % (36.0-47.0); HEMOGLOBIN 8.9 g/dL (12.0-16.0); LYMPHOCYTES # (AUTO) 1.2 X10^3/uL (1.3-2.9); LYMPHOCYTES % (AUTO) 15.2 % (21.0-51.0); MEAN CORPUSCULAR HEMOGLOBIN 32.1 pg (27.0-34.0); MEAN CORPUSCULAR HGB CONC 34.9 g/dL (33.0-35.0); MEAN CORPUSCULAR VOLUME 91.8 fL (80.0-100.0); MEAN PLATELET VOLUME 8.1 fL (7.4-11.0); MONOCYTES # (AUTO) 0.5 x10^3/uL (0.3-0.8); NEUTROPHILS # (AUTO) 5.8 x10^3/uL (2.2-4.8); PLATELET COUNT 214 X10^3/uL (150.0-450.0); RED BLOOD COUNT 2.76 X10^6/uL (3.5-5.4); RED CELL DISTRIBUTION WIDTH 13.8 % (11.6-16.5); WHITE BLOOD COUNT 7.6 X10^3/uL (3.6-10.0)
[2017-05-06 05:46] LABS: ALANINE AMINOTRANSFERASE 25 Units/L (12-78); ALBUMIN 2.4 g/dL (3.4-5.0); ALKALINE PHOSPHATASE 78 Units/L (46-116); ASPARTATE AMINO TRANSFERASE 26 Units/L (15-37); BLOOD UREA NITROGEN 16 mg/dL (7-18); CALCIUM 8.5 mg/dL (8.5-10.1); CARBON DIOXIDE 29.1 mmol/L (21-32); CHLORIDE 106 mmol/L (98-107); COR CA(FOR HYPOALB) 9.8 mg/dL (8.5-10.1); CREATININE 0.77 mg/dL (0.55-1.02); SODIUM 141 mmol/L (136-145); TOTAL PROTEIN 6.2 g/dL (6.4-8.2); eGFR BLACK RACES > 60 (>60); eGFR NON BLACK RACES > 60 (>60)
[2017-05-06] MEDS ORDERED: ZOLOFT PO ONE (09:16)
[2017-05-06] MEDS: MILK OF MAGNESIA PO SCH (09:23)
[2017-05-06] MEDS: KLONOPIN TAB 1 MG PO SCH (09:23)
[2017-05-06] MEDS: NORVASC TAB 10 MG PO SCH (09:23)
[2017-05-06] MEDS: ZOLOFT PO SCH (09:24)
[2017-05-06] MEDS: LR 1000 ML IV 1,000 ML IV SCH (09:24)
[2017-05-06 11:39] VITALS: BP 123/60
--- NOTE | 2017-05-06 19:40 | PCM.PROG ---
Progress Note - Progress Note for Day of Date: 05/04/17 - Subjective Subjective: IS STATUS POST LEFT TOTAL KNEE REPLACEMENT ON 05/02/17. CONSULTED US FOR MEDICAL CARE. TODAY, SHE IS ALERT AND ORIENTED, LYING IN BED ON MORNING ROUNDS. SHE IS NOTED WITH COMPLAINTS OF GENERALIZED WEAKNESS AND LEFT KNEE PAIN. ON EXAMINATION, HEART IS REGULAR IN RATE AND RHYTHM. BILATERAL LUNGS ARE NOTED TO BE CLEAR TO AUSCULTATION. ABDOMEN IS ROUND , SOFT, AND NON-TENDER WITH NORMAL BOWEL SOUNDS NOTED IN ALL QUADRANTS. LEFT KNEE IS NOTED WITH A SURGICAL DRESSING. DRESSING IS DRY AND INTACT WITH NO SIGNS OR SX INFECTION NOTED TO SITE. HER VITALS THIS MORNING ARE 98.6-91-18-93%- 192/81. SHE HAS BEEN AFEBRILE THROUGHOUT THE NIGHT. LABS WERE OBTAINED THIS MORNING. ABNORMAL LAB VALUES INCLUDE THE FOLLOWING: WBC INCREASED FROM 14.6 TO 15.2, RBC 3.35, HGB 10.5, HCT 30.5, GLUCOSE 123. PHYSICAL THERAPY REPORTS THAT PATIENT CONTINUES TO AMBULATE WELL WITH ASSISTANCE. THEY FEEL THAT SHE WILL BENEFIT FROM AN EXTENDED PERIOD OF INPATIENT REHAB. WE ARE IN AGREEMENT. WE WILL DISCUSS THIS WITH CASE MANAGEMENT AND . SHE CONTINUES ON ORAL AND IV PAIN MEDICACTION. TODAY, WE WILL OBTAIN BLOOD CULTURES, URINE CULTURES, AND A CHEST XRAY DUE TO ELEVATED WBC. OTHERWISE, WE WILL CONTINUE WITH CURRENT PLAN OF CARE TODAY. WE WILL FOLLOW UP WITH AM LABS AND CONTINUE TO MONITOR PATIENT. - Past Medical Family Social History Past Med/Fam/Surg Hx: No changes since H&P Allergies: Allergies codeine Allergy (Verified 05/02/17 15:21) meloxicam Allergy (Verified 05/02/17 15:21) prochlorperazine Allergy (Verified 05/02/17 15:21) Sulfa (Sulfonamide Antibiotics) Allergy (Verified 05/02/17 15:21) - Review of Systems ROS: No change since H&P - Vital Signs and I&O's Vital Signs: Temperature 97.7 F Pulse Rate [Right Brachial] 80 Pulse Rate [Left Brachial] 102 Pulse Rate 88 Respiratory Rate 18 Blood Pressure [Right Arm] 123/60 Blood Pressure [Left Arm] 185/79 Blood Pressure 107/51 O2 Sat by Pulse Oximetry 93 Intake and Output: Intake & Output 01/05/05/17 05/06/17 05/07/17 11:59 11:59 11:59 11:59 Intake Total 2475 1760 2040 Output Total 150 200 Balance 2325 1760 1840 - Physical Exam Oriented: Normal Eyes: Normal Ear: Normal Nose: Normal Throat: Normal Respiratory: Normal Cardiovascular: Normal : Normal Auscultation: Bowel Sounds: Normal Palpation: Normal Tenderness: Normal Skin: Wound (LEFT KNEE SURGICAL WOUND ) Musculoskeletal: Normal, Left, Knee, Instability Psychiatric: Normal Mood Description: Calm Affect: Normal Speech Pattern: Clear, Appropriate - Laboratory and Diagnostics Result Diagrams: 05/06/17 04:20 05/06/17 04:20 Labs: 05/04/17 10:15 Blood Blood Culture - Preliminary 05/04/17 10:10 Blood Blood Culture - Preliminary 05/05/17 07:34 Urine,Clean Catch Urine Culture - Preliminary Laboratory WBC 7.6 X10^3/uL (3.6-10.0) 05/06/17 04:20 RBC 2.76 X10^6/uL (3.5-5.4) L 05/06/17 04:20 Hgb 8.9 g/dL (12.0-16.0) L 05/06/17 04:20 Hct 25.4 % (36.0-47.0) L 05/06/17 04:20 MCV 91.8 fL (80.0-100.0) 05/06/17 04:20 MCH 32.1 pg (27.0-34.0) 05/06/17 04:20 MCHC 34.9 g/dL (33.0-35.0) 05/06/17 04:20 RDW 13.8 % (11.6-16.5) 05/06/17 04:20 Plt Count 214 X10^3/uL (150.0-450.0) 05/06/17 04:20 MPV 8.1 fL (7.4-11.0) 05/06/17 04:20 Neut % 76.0 % (42.0-75.0) H 05/06/17 04:20 Lymph % 15.2 % (21.0-51.0) L 05/06/17 04:20 [place] % 7.0 % (0.0-13.0) 05/06/17 04:20 Eos % 1.4 % (0.9-2.9) 05/06/17 04:20 Baso % 0.4 % (0.2-1.0) 05/06/17 04:20 Neut # 5.8 x10^3/uL (2.2-4.8) H 05/06/17 04:20 Lymph # 1.2 X10^3/uL (1.3-2.9) L 05/06/17 04:20 [place] # 0.5 x10^3/uL (0.3-0.8) 05/06/17 04:20 Eos # 0.1 x10^3/uL (0.0-0.2) 05/06/17 04:20 Baso # 0.0 X10^3/uL (0.0-0.1) 05/06/17 04:20 Absolute Nucleated RBC 0.0 /100WBC 05/06/17 04:20 Sodium 141 mmol/L (136-145) 05/06/17 04:20 Corrected Sodium TNP 05/06/17 04:20 Potassium 3.6 mmol/L (3.5-5.1) 05/06/17 04:20 Chloride 106 mmol/L (98-107) 05/06/17 04:20 Carbon Dioxide 29.1 mmol/L (21-32) 05/06/17 04:20 BUN 16 mg/dL (7-18) 05/06/17 04:20 Creatinine 0.77 mg/dL (0.55-1.02) 05/06/17 04:20 Est GFR (MDRD) Af Amer > 60 (>60) 05/06/17 04:20 Est GFR (MDRD) Non-Af > 60 (>60) 05/06/17 04:20 Glucose 102 mg/dL (65-99) H 05/06/17 04:20 Calcium 8.5 mg/dL (8.5-10.1) 05/06/17 04:20 Corrected Calcium 9.8 mg/dL (8.5-10.1) 05/06/17 04:20 Total Bilirubin 0.30 mg/dL (0.2-1.0) 05/06/17 04:20 AST 26 Units/L (15-37) 05/06/17 04:20 ALT 25 Units/L (12-78) 05/06/17 04:20 Alkaline Phosphatase 78 Units/L (46-116) 05/06/17 04:20 Total Protein 6.2 g/dL (6.4-8.2) L 05/06/17 04:20 Albumin 2.4 g/dL (3.4-5.0) L 05/06/17 04:20 Globulin 3.8 g/dL (2.5-4.5) 05/06/17 04:20 Albumin/Globulin Ratio 0.6 Ratio (1.1-2.1) L 05/06/17 04:20 Specimen Type Clean catch urine 05/05/17 07:34 Urine Color Yellow (YELLOW) 05/05/17 07:34 Urine Appearance Hazy (CLEAR) 05/05/17 07:34 Urine pH 5.0 (5.0 - 8.0) 05/05/17 07:34 Ur Specific [place] 1.020 (1.000-1.030) 05/05/17 07:34 Urine Protein 2+ (NEGATIVE) 05/05/17 07:34 Urine Glucose (UA) Negative (NEGATIVE) 05/05/17 07:34 Urine Ketones 2+ (NEGATIVE) 05/05/17 07:34 Urine Occult Blood 1+ (NEGATIVE) 05/05/17 07:34 Urine Nitrite Negative (NEGATIVE) 05/05/17 07:34 Urine Bilirubin Negative (NEGATIVE) 05/05/17 07:34 Urine Urobilinogen Normal (NORMAL) 05/05/17 07:34 Ur Leukocyte Esterase Negative (NEGATIVE) 05/05/17 07:34 Urine RBC 0-2 /HPF (NEGATIVE) 05/05/17 07:34 Urine WBC 0-2 /HPF (NEGATIVE) 05/05/17 07:34 Ur Squamous Epith Cells Rare /HPF (NEGATIVE) 05/05/17 07:34 Urine Bacteria Negative /HPF (NEGATIVE) 05/05/17 07:34 Urine Mucus Moderate /HPF (NEGATIVE) 05/05/17 07:34 Ur Culture Indicated? Yes/culture set up 05/05/17 07:34 - Plan (1) Status post total left knee replacement Status: Acute Plan: she will need continued physical therapy , to a stage where she could be able to take care of her self on a daily basis. Currently she lacks support at home. We will plan to change her status to a swing bed where she can get to physical therapy on a continuous basis. (2) Leukocytosis Status: Acute Qualifiers: Leukocytosis type: leukemoid reaction Qualified Code(s): D72.823 - Leukemoid reaction Plan: BLOOD CULTURES, URINE CULTURE, CHEST XRAY, ROCEPHIN 1GM IV DAILY, CONTINUE TO MONITOR
--- NOTE | 2017-05-08 20:51 | PCM.PROG ---
Progress Note - Progress Note for Day of Date: 05/05/17 - Subjective Subjective: IS STATUS POST LEFT TOTAL KNEE REPLACEMENT ON 05/02/17. CONSULTED US FOR MEDICAL CARE. TODAY, SHE IS ALERT AND ORIENTED, LYING IN BED ON MORNING ROUNDS. SHE IS NOTED WITH COMPLAINTS OF GENERALIZED WEAKNESS AND LEFT KNEE PAIN. ON EXAMINATION, HEART IS REGULAR IN RATE AND RHYTHM. BILATERAL LUNGS ARE NOTED TO BE CLEAR TO AUSCULTATION. ABDOMEN IS ROUND , SOFT, AND NON-TENDER WITH NORMAL BOWEL SOUNDS NOTED IN ALL QUADRANTS. LEFT KNEE IS NOTED WITH A SURGICAL DRESSING. DRESSING IS DRY AND INTACT WITH NO SIGNS OR SX INFECTION NOTED TO SITE. HER VITALS THIS MORNING ARE 98.6-91-18-93%- 192/81. SHE HAS BEEN AFEBRILE THROUGHOUT THE NIGHT. LABS WERE OBTAINED THIS MORNING. ABNORMAL LAB VALUES INCLUDE THE FOLLOWING: WBC INCREASED FROM 14.6 TO 15.2, RBC 3.35, HGB 10.5, HCT 30.5, GLUCOSE 123. PHYSICAL THERAPY REPORTS THAT PATIENT CONTINUES TO AMBULATE WELL WITH ASSISTANCE. THEY FEEL THAT SHE WILL BENEFIT FROM AN EXTENDED PERIOD OF INPATIENT REHAB. WE ARE IN AGREEMENT. WE WILL DISCUSS THIS WITH CASE MANAGEMENT AND . SHE CONTINUES ON ORAL AND IV PAIN MEDICACTION. TODAY, WE WILL OBTAIN BLOOD CULTURES, URINE CULTURES, AND A CHEST XRAY DUE TO ELEVATED WBC. OTHERWISE, WE WILL CONTINUE WITH CURRENT PLAN OF CARE TODAY. WE WILL FOLLOW UP WITH AM LABS AND CONTINUE TO MONITOR PATIENT. - Past Medical Family Social History Past Med/Fam/Surg Hx: No changes since H&P Allergies: Allergies codeine Allergy (Verified 05/02/17 15:21) meloxicam Allergy (Verified 05/02/17 15:21) prochlorperazine Allergy (Verified 05/02/17 15:21) Sulfa (Sulfonamide Antibiotics) Allergy (Verified 05/02/17 15:21) - Review of Systems ROS: No change since H&P - Vital Signs and I&O's Vital Signs: Temperature 97.7 F Pulse Rate [Right Brachial] 80 Pulse Rate [Left Brachial] 102 Pulse Rate 88 Respiratory Rate 18 Blood Pressure [Right Arm] 123/60 Blood Pressure [Left Arm] 185/79 Blood Pressure 107/51 O2 Sat by Pulse Oximetry 93 Intake and Output: Intake & Output 02/05/2205/07/17 05/08/17 05/09/17 11:59 11:59 11:59 11:59 Intake Total 2040 Output Total 200 Balance 1840 - Physical Exam Oriented: Normal Eyes: Normal Ear: Normal Nose: Normal Throat: Normal Respiratory: Normal Cardiovascular: Normal : Normal Auscultation: Bowel Sounds: Normal Tenderness: Normal Skin: Wound (LEFT KNEE SURGICAL WOUND ) Musculoskeletal: Normal, Left, Knee, Instability Psychiatric: Normal Mood Description: Calm Affect: Normal Speech Pattern: Clear, Appropriate - Laboratory and Diagnostics Result Diagrams: 05/06/17 04:20 05/06/17 04:20 Labs: 05/05/17 07:34 Urine,Clean Catch Urine Culture - Final 05/04/17 10:15 Blood Blood Culture - Preliminary 05/04/17 10:10 Blood Blood Culture - Preliminary Laboratory WBC 7.6 X10^3/uL (3.6-10.0) 05/06/17 04:20 RBC 2.76 X10^6/uL (3.5-5.4) L 05/06/17 04:20 Hgb 8.9 g/dL (12.0-16.0) L 05/06/17 04:20 Hct 25.4 % (36.0-47.0) L 05/06/17 04:20 MCV 91.8 fL (80.0-100.0) 05/06/17 04:20 MCH 32.1 pg (27.0-34.0) 05/06/17 04:20 MCHC 34.9 g/dL (33.0-35.0) 05/06/17 04:20 RDW 13.8 % (11.6-16.5) 05/06/17 04:20 Plt Count 214 X10^3/uL (150.0-450.0) 05/06/17 04:20 MPV 8.1 fL (7.4-11.0) 05/06/17 04:20 Neut % 76.0 % (42.0-75.0) H 05/06/17 04:20 Lymph % 15.2 % (21.0-51.0) L 05/06/17 04:20 [place] % 7.0 % (0.0-13.0) 05/06/17 04:20 Eos % 1.4 % (0.9-2.9) 05/06/17 04:20 Baso % 0.4 % (0.2-1.0) 05/06/17 04:20 Neut # 5.8 x10^3/uL (2.2-4.8) H 05/06/17 04:20 Lymph # 1.2 X10^3/uL (1.3-2.9) L 05/06/17 04:20 [place] # 0.5 x10^3/uL (0.3-0.8) 05/06/17 04:20 Eos # 0.1 x10^3/uL (0.0-0.2) 05/06/17 04:20 Baso # 0.0 X10^3/uL (0.0-0.1) 05/06/17 04:20 Absolute Nucleated RBC 0.0 /100WBC 05/06/17 04:20 Sodium 141 mmol/L (136-145) 05/06/17 04:20 Corrected Sodium TNP 05/06/17 04:20 Potassium 3.6 mmol/L (3.5-5.1) 05/06/17 04:20 Chloride 106 mmol/L (98-107) 05/06/17 04:20 Carbon Dioxide 29.1 mmol/L (21-32) 05/06/17 04:20 BUN 16 mg/dL (7-18) 05/06/17 04:20 Creatinine 0.77 mg/dL (0.55-1.02) 05/06/17 04:20 Est GFR (MDRD) Af Amer > 60 (>60) 05/06/17 04:20 Est GFR (MDRD) Non-Af > 60 (>60) 05/06/17 04:20 Glucose 102 mg/dL (65-99) H 05/06/17 04:20 Calcium 8.5 mg/dL (8.5-10.1) 05/06/17 04:20 Corrected Calcium 9.8 mg/dL (8.5-10.1) 05/06/17 04:20 Total Bilirubin 0.30 mg/dL (0.2-1.0) 05/06/17 04:20 AST 26 Units/L (15-37) 05/06/17 04:20 ALT 25 Units/L (12-78) 05/06/17 04:20 Alkaline Phosphatase 78 Units/L (46-116) 05/06/17 04:20 Total Protein 6.2 g/dL (6.4-8.2) L 05/06/17 04:20 Albumin 2.4 g/dL (3.4-5.0) L 05/06/17 04:20 Globulin 3.8 g/dL (2.5-4.5) 05/06/17 04:20 Albumin/Globulin Ratio 0.6 Ratio (1.1-2.1) L 05/06/17 04:20 Specimen Type Clean catch urine 05/05/17 07:34 Urine Color Yellow (YELLOW) 05/05/17 07:34 Urine Appearance Hazy (CLEAR) 05/05/17 07:34 Urine pH 5.0 (5.0 - 8.0) 05/05/17 07:34 Ur Specific [place] 1.020 (1.000-1.030) 05/05/17 07:34 Urine Protein 2+ (NEGATIVE) 05/05/17 07:34 Urine Glucose (UA) Negative (NEGATIVE) 05/05/17 07:34 Urine Ketones 2+ (NEGATIVE) 05/05/17 07:34 Urine Occult Blood 1+ (NEGATIVE) 05/05/17 07:34 Urine Nitrite Negative (NEGATIVE) 05/05/17 07:34 Urine Bilirubin Negative (NEGATIVE) 05/05/17 07:34 Urine Urobilinogen Normal (NORMAL) 05/05/17 07:34 Ur Leukocyte Esterase Negative (NEGATIVE) 05/05/17 07:34 Urine RBC 0-2 /HPF (NEGATIVE) 05/05/17 07:34 Urine WBC 0-2 /HPF (NEGATIVE) 05/05/17 07:34 Ur Squamous Epith Cells Rare /HPF (NEGATIVE) 05/05/17 07:34 Urine Bacteria Negative /HPF (NEGATIVE) 05/05/17 07:34 Urine Mucus Moderate /HPF (NEGATIVE) 05/05/17 07:34 Ur Culture Indicated? Yes/culture set up 05/05/17 07:34 - Plan (1) Status post total left knee replacement Status: Acute Plan: she will need continued physical therapy , to a stage where she could be able to take care of her self on a daily basis. Currently she lacks support at home. We will plan to change her status to a swing bed where she can get to physical therapy on a continuous basis. (2) Leukocytosis Status: Acute Qualifiers: Leukocytosis type: leukemoid reaction Qualified Code(s): D72.823 - Leukemoid reaction Plan: BLOOD CULTURES, URINE CULTURE, CHEST XRAY, ROCEPHIN 1GM IV DAILY, CONTINUE TO MONITOR
== END 2017-05-06 11:29 | disposition swing bed (61) | DRG 470 ==
LOC: MED/SURG 07:25
PROVIDERS: ADMIT Orthopaedic Surgery; ATTEND Internal Medicine
PROC: 0SRD069 Replacement of Left Knee Joint with Oxidized Zirconium on Polyethylene Synthetic Substitute, Cemented, Open Approach (ICD-10-PCS; principal; 2017-05-02 08:30)
DX: M17.12 Unilateral primary osteoarthritis, left knee (principal); M25.562 Pain in left knee; R26.89 Other abnormalities of gait and mobility
CPT/HCPCS: 36415; 71045; 73560; 73564; 80048; 80053; 81001; 85014; 85018; 85025; 87040; 87086; 94640; 94762; 97535; 99100; A4216; A4222; S0020; J0690; J1170; J1650; J2001; J2250; J2270; J2271; J2405; J2550; J3490; J7120

== ENCOUNTER 2017-05-06 11:30 | Inpatient (IN) | payer OTHER ==
[2017-05-06] MEDS ORDERED: MOTRIN TAB 800 MG PO PRN (12:40)
[2017-05-06] MEDS: PERCOCET TAB 5/325 MG PO PRN ×2 (12:49→20:47)
[2017-05-06] MEDS: ZANAFLEX PO PRN ×2 (12:50→20:48)
[2017-05-06 13:46] VITALS: BMI 26.6
[2017-05-06] MEDS ORDERED: ZOLOFT PO ONE (20:36)
[2017-05-06] MEDS: MILK OF MAGNESIA PO SCH (20:48)
[2017-05-06] MEDS: COLACE CAP 100 MG PO SCH (20:48)
[2017-05-06] MEDS: ZOLOFT PO SCH (20:49)
[2017-05-06] MEDS: KLONOPIN TAB 1 MG PO SCH (20:49)
[2017-05-06] MEDS: LOVENOX INJ 30 MG SYR SC SCH (20:49)
[2017-05-07] MEDS: PERCOCET TAB 5/325 MG PO PRN ×4 (05:06→21:47)
[2017-05-07 07:01] LABS: ALANINE AMINOTRANSFERASE 24 Units/L (12-78); ALBUMIN 2.3 g/dL (3.4-5.0); ALKALINE PHOSPHATASE 72 Units/L (46-116); ASPARTATE AMINO TRANSFERASE 20 Units/L (15-37); BLOOD UREA NITROGEN 15 mg/dL (7-18); CALCIUM 8.2 mg/dL (8.5-10.1); CARBON DIOXIDE 29.1 mmol/L (21-32); CHLORIDE 105 mmol/L (98-107); COR CA(FOR HYPOALB) 9.6 mg/dL (8.5-10.1); CREATININE 0.79 mg/dL (0.55-1.02); SODIUM 141 mmol/L (136-145); TOTAL PROTEIN 6.1 g/dL (6.4-8.2); eGFR BLACK RACES > 60 (>60); eGFR NON BLACK RACES > 60 (>60)
[2017-05-07] MEDS ORDERED: ZOLOFT PO ONE ×2 (08:09→21:40)
[2017-05-07] MEDS: NORVASC TAB 10 MG PO SCH (08:24)
[2017-05-07] MEDS: ZOLOFT PO SCH ×2 (08:24→21:48)
[2017-05-07] MEDS: KLONOPIN TAB 1 MG PO SCH ×2 (08:24→21:46)
[2017-05-07] MEDS: MILK OF MAGNESIA PO SCH ×2 (08:24→21:48)
[2017-05-07] MEDS ORDERED: DILAUDID INJ IVP PRN (15:03)
[2017-05-07 15:55] LABS: BASOPHILS # (AUTO) 0.1 X10^3/uL (0.0-0.1); BASOPHILS % (AUTO) 0.8 % (0.2-1.0); EOSINOPHILS # (AUTO) 0.1 x10^3/uL (0.0-0.2); EOSINOPHILS % (AUTO) 2.3 % (0.9-2.9); HEMATOCRIT 28.1 % (36.0-47.0); HEMOGLOBIN 9.6 g/dL (12.0-16.0); LYMPHOCYTES # (AUTO) 1.3 X10^3/uL (1.3-2.9); LYMPHOCYTES % (AUTO) 19.9 % (21.0-51.0); MEAN CORPUSCULAR HEMOGLOBIN 31.4 pg (27.0-34.0); MEAN CORPUSCULAR HGB CONC 34.1 g/dL (33.0-35.0); MEAN CORPUSCULAR VOLUME 91.9 fL (80.0-100.0); MEAN PLATELET VOLUME 7.6 fL (7.4-11.0); MONOCYTES # (AUTO) 0.5 x10^3/uL (0.3-0.8); MONOCYTES % (AUTO) 7.8 % (0.0-13.0); NEUTROPHILS # (AUTO) 4.5 x10^3/uL (2.2-4.8); NEUTROPHILS % (AUTO) 69.2 % (42.0-75.0); PLATELET COUNT 261 X10^3/uL (150.0-450.0); RED BLOOD COUNT 3.06 X10^6/uL (3.5-5.4); RED CELL DISTRIBUTION WIDTH 13.9 % (11.6-16.5); WHITE BLOOD COUNT 6.5 X10^3/uL (3.6-10.0)
--- NOTE | 2017-05-07 17:05 | VAS ---
HISTORY: Left leg pain status post amputation 5 days ago Study: Left lower extremity venous Doppler ultrasound Comparison: None TECHNIQUE: Multiple cardoza scale and color flow Doppler images of the deep venous system were obtained of the Left lower extremity. FINDINGS: The deep venous system of the left lower extremity was evaluated from the level of the common femoral vein through the popliteal vein. Normal color flow and augmentation can be observed. In addition, normal compression is seen throughout the deep venous system. IMPRESSION: 1. Negative for DVT. Reported By:
[2017-05-07] MEDS: ZANAFLEX PO PRN (21:46)
[2017-05-07] MEDS: LOVENOX INJ 30 MG SYR SC SCH (21:48)
[2017-05-07] MEDS: COLACE CAP 100 MG PO SCH (21:48)
[2017-05-08] MEDS: PERCOCET TAB 5/325 MG PO PRN ×2 (03:19→09:31)
[2017-05-08 06:11] LABS: BASOPHILS # (AUTO) 0.1 X10^3/uL (0.0-0.1); BASOPHILS % (AUTO) 0.9 % (0.2-1.0); EOSINOPHILS # (AUTO) 0.1 x10^3/uL (0.0-0.2); EOSINOPHILS % (AUTO) 2.5 % (0.9-2.9); HEMATOCRIT 25.2 % (36.0-47.0); HEMOGLOBIN 8.6 g/dL (12.0-16.0); LYMPHOCYTES # (AUTO) 1.2 X10^3/uL (1.3-2.9); LYMPHOCYTES % (AUTO) 22.7 % (21.0-51.0); MEAN CORPUSCULAR HEMOGLOBIN 31.2 pg (27.0-34.0); MEAN CORPUSCULAR HGB CONC 34.1 g/dL (33.0-35.0); MEAN CORPUSCULAR VOLUME 91.5 fL (80.0-100.0); MEAN PLATELET VOLUME 7.3 fL (7.4-11.0); MONOCYTES # (AUTO) 0.4 x10^3/uL (0.3-0.8); MONOCYTES % (AUTO) 8.1 % (0.0-13.0); NEUTROPHILS # (AUTO) 3.6 x10^3/uL (2.2-4.8); NEUTROPHILS % (AUTO) 65.8 % (42.0-75.0); PLATELET COUNT 236 X10^3/uL (150.0-450.0); RED BLOOD COUNT 2.75 X10^6/uL (3.5-5.4); RED CELL DISTRIBUTION WIDTH 14.4 % (11.6-16.5); WHITE BLOOD COUNT 5.5 X10^3/uL (3.6-10.0)
[2017-05-08] MEDS ORDERED: ZOLOFT PO ONE ×3 (08:09→20:50)
[2017-05-08] MEDS: NORVASC TAB 10 MG PO SCH (09:31)
[2017-05-08] MEDS: ZOLOFT PO SCH ×2 (09:32→22:04)
[2017-05-08] MEDS: MILK OF MAGNESIA PO SCH ×2 (09:32→22:07)
[2017-05-08] MEDS: KLONOPIN TAB 1 MG PO SCH ×2 (09:32→22:03)
--- NOTE | 2017-05-08 11:46 | PCM.PROG ---
Progress Note - Progress Note for Day of Date: 05/08/17 - Subjective Subjective: patient has been complainin of incresing pain and has been demanding dilaudid for pain. she reports the PO pain is not " touching the pain ". She is currently lying comfortably in the bed. her vitals are stable. her knee is not hot/red. incison clean and dry. her swelling is minimal. no calf swelling/ redness/disclorotion/tenderness noted. she is on lovenox and her DVT scan yesterday was negative. - Past Medical Family Social History Allergies: Allergies codeine Allergy (Verified 05/02/17 15:21) meloxicam Allergy (Verified 05/02/17 15:21) prochlorperazine Allergy (Verified 05/02/17 15:21) Sulfa (Sulfonamide Antibiotics) Allergy (Verified 05/02/17 15:21) - Vital Signs and I&O's Vital Signs: Temperature 98.3 F Pulse Rate [Left Brachial] 82 Pulse Rate [Right Radial] 70 Respiratory Rate 20 Blood Pressure [Right Arm] 194/78 Blood Pressure [Left Arm] 185/79 Blood Pressure 123/60 O2 Sat by Pulse Oximetry 95 Intake and Output: Intake & Output 05/05/17 05/06/17 05/07/17 05/08/17 11:59 11:59 11:59 11:59 Intake Total 4394 1220 Output Total 875 650 Balance 3519 570 - Physical Exam Oriented: Normal Eyes: Normal Ear: Normal Nose: Normal Throat: Normal Respiratory: Normal Cardiovascular: Normal : Normal Auscultation: Bowel Sounds: Normal Palpation: Normal Tenderness: Normal Skin: Normal Musculoskeletal: Left, Knee, Tender (she reports that even touching causes her pain. her pain seems out of proprtion to the findings. there is no apperant reason why she has so much pain. Knee incison clean and dry. no redness/ swelling of left knee. she able to do SLR. Knee 5- 65ROM. Stable. we also got XR twice after the surgery and there were no changes or complications noted. this was convyed to the patient. ) Speech Pattern: Clear, Appropriate - Laboratory and Diagnostics Result Diagrams: 05/08/17 05:45 05/07/17 05:25 Labs: Laboratory WBC 5.5 X10^3/uL (3.6-10.0) 05/08/17 05:45 RBC 2.75 X10^6/uL (3.5-5.4) L 05/08/17 05:45 Hgb 8.6 g/dL (12.0-16.0) L 05/08/17 05:45 Hct 25.2 % (36.0-47.0) L 05/08/17 05:45 MCV 91.5 fL (80.0-100.0) 05/08/17 05:45 MCH 31.2 pg (27.0-34.0) 05/08/17 05:45 MCHC 34.1 g/dL (33.0-35.0) 05/08/17 05:45 RDW 14.4 % (11.6-16.5) 05/08/17 05:45 Plt Count 236 X10^3/uL (150.0-450.0) 05/08/17 05:45 MPV 7.3 fL (7.4-11.0) L 05/08/17 05:45 Neut % 65.8 % (42.0-75.0) 05/08/17 05:45 Lymph % 22.7 % (21.0-51.0) 05/08/17 05:45 [place] % 8.1 % (0.0-13.0) 05/08/17 05:45 Eos % 2.5 % (0.9-2.9) 05/08/17 05:45 Baso % 0.9 % (0.2-1.0) 05/08/17 05:45 Neut # 3.6 x10^3/uL (2.2-4.8) 05/08/17 05:45 Lymph # 1.2 X10^3/uL (1.3-2.9) L 05/08/17 05:45 [place] # 0.4 x10^3/uL (0.3-0.8) 05/08/17 05:45 Eos # 0.1 x10^3/uL (0.0-0.2) 05/08/17 05:45 Baso # 0.1 X10^3/uL (0.0-0.1) 05/08/17 05:45 Absolute Nucleated RBC 0.0 /100WBC 05/08/17 05:45 Sodium 141 mmol/L (136-145) 05/07/17 05:25 Corrected Sodium TNP 05/07/17 05:25 Potassium 3.9 mmol/L (3.5-5.1) 05/07/17 05:25 Chloride 105 mmol/L (98-107) 05/07/17 05:25 Carbon Dioxide 29.1 mmol/L (21-32) 05/07/17 05:25 BUN 15 mg/dL (7-18) 05/07/17 05:25 Creatinine 0.79 mg/dL (0.55-1.02) 05/07/17 05:25 Est GFR (MDRD) Af Amer > 60 (>60) 05/07/17 05:25 Est GFR (MDRD) Non-Af > 60 (>60) 05/07/17 05:25 Glucose 90 mg/dL (65-99) 05/07/17 05:25 Calcium 8.2 mg/dL (8.5-10.1) L 05/07/17 05:25 Corrected Calcium 9.6 mg/dL (8.5-10.1) 05/07/17 05:25 Total Bilirubin 0.20 mg/dL (0.2-1.0) 05/07/17 05:25 AST 20 Units/L (15-37) 05/07/17 05:25 ALT 24 Units/L (12-78) 05/07/17 05:25 Alkaline Phosphatase 72 Units/L (46-116) 05/07/17 05:25 Total Protein 6.1 g/dL (6.4-8.2) L 05/07/17 05:25 Albumin 2.3 g/dL (3.4-5.0) L 05/07/17 05:25 Globulin 3.8 g/dL (2.5-4.5) 05/07/17 05:25 Albumin/Globulin Ratio 0.6 Ratio (1.1-2.1) L 05/07/17 05:25 - Plan (1) Status post total left knee replacement Status: Acute Plan: tachoinjeromy PT. Plan on sending her to rehab on Tuesday. regular dressing change. discussed with her that she needs to be on only PO pain med now. we will have her on scheduled Hydrocodoen 10 mg q 4, naurontin 100mg q 8 and ibuprofen 800 q 8 round the clock for her pain control. she understood and verbalized he same.
[2017-05-08] MEDS: MOTRIN TAB 800 MG PO SCH ×3 (13:36→22:03)
[2017-05-08] MEDS: NEURONTIN CAP 100 MG PO SCH ×3 (13:36→22:03)
[2017-05-08] MEDS: ROXICODONE TAB 5 MG PO PRN (17:24)
[2017-05-08] MEDS: LOVENOX INJ 30 MG SYR SC SCH (22:04)
[2017-05-08] MEDS: COLACE CAP 100 MG PO SCH (22:08)
[2017-05-09] MEDS: MOTRIN TAB 800 MG PO SCH ×3 (05:19→21:13)
[2017-05-09] MEDS: NEURONTIN CAP 100 MG PO SCH ×3 (05:19→21:13)
[2017-05-09] MEDS ORDERED: ZOLOFT PO ONE ×2 (08:09→20:09)
[2017-05-09] MEDS: ZOLOFT PO SCH ×2 (08:15→20:24)
[2017-05-09] MEDS: NORVASC TAB 10 MG PO SCH (08:15)
[2017-05-09] MEDS: KLONOPIN TAB 1 MG PO SCH ×2 (08:15→20:24)
[2017-05-09] MEDS: MILK OF MAGNESIA PO SCH ×2 (10:40→20:29)
--- NOTE | 2017-05-09 18:41 | PCM.PROG ---
Progress Note - Progress Note for Day of Date: 05/08/17 - Subjective Subjective: IS STATUS POST LEFT TOTAL KNEE REPLACEMENT ON 05/02/17. SHE IS CURRENTLY SWINGBED STATUS FOR PHYSICAL THERAPY AND REHAB. TODAY, SHE IS ALERT AND ORIENTED, LYING IN BED ON MORNING ROUNDS. SHE REPORTS INCREASING LEFT KNEE PAIN. ON EXAMINATION, HEART IS REGULAR IN RATE AND RHYTHM. BILATERAL LUNGS ARE NOTED TO BE CLEAR TO AUSCULTATION. ABDOMEN IS ROUND, SOFT, AND NON-TENDER WITH NORMAL BOWEL SOUNDS NOTED IN ALL QUADRANTS. LEFT KNEE IS NOTED TO HAVE REDNESS AND INCREASED SWELLING AROUND THE SURGICAL SITE. LEFT LOWER LEG IS NOTED WITH 2+ PITTING EDEMA. NO DRAINAGE IS NOTED TO THE SURGICAL SITE. HER VITALS THIS MORNING ARE 98.3-82-20-95%-180/72. SHE HAS BEEN AFEBRILE THROUGHOUT THE NIGHT. LABS WERE OBTAINED THIS MORNING. ABNORMAL LAB VALUES INCLUDE THE FOLLOWING: RBC 2.75, HGB 8.6, HCT 25.2. ORDERED A VENOUS DOPPLER OF THE LEFT LEG YESTERDAY. IT REPORTED NEGATIVE FOR DVT. PHYSICAL THERAPY REPORTS THAT PATIENT CONTINUES TO AMBULATE WELL WITH ASSISTANCE. SHE CONTINUES ON ORAL PAIN MEDICATIONS. TODAY, WE WILL CONTINUE WITH CURRENT PLAN OF CARE. WE WILL FOLLOW UP WITH AM LABS AND CONTINUE TO MONITOR PATIENT. - Past Medical Family Social History Past Med/Fam/Surg Hx: No changes since H&P Allergies: Allergies codeine Allergy (Verified 05/02/17 15:21) meloxicam Allergy (Verified 05/02/17 15:21) prochlorperazine Allergy (Verified 05/02/17 15:21) Sulfa (Sulfonamide Antibiotics) Allergy (Verified 05/02/17 15:21) - Review of Systems ROS: No change since H&P - Vital Signs and I&O's Vital Signs: Temperature 98.7 F Pulse Rate [Left Brachial] 84 Pulse Rate [Right Radial] 72 Respiratory Rate 20 Blood Pressure [Right Arm] 162/71 Blood Pressure [Left Arm] 180/72 Blood Pressure 123/60 O2 Sat by Pulse Oximetry 94 Intake and Output: Intake & Output 05/07/17 05/08/17 05/09/17 05/10/17 11:59 11:59 11:59 11:59 Intake Total 4394 1220 2050 720 Output Total 875 650 300 800 Balance 3519 570 1750 -80 - Physical Exam Oriented: Normal Eyes: Normal Ear: Normal Nose: Normal Throat: Normal Respiratory: Normal Cardiovascular: Normal : Normal Auscultation: Bowel Sounds: Normal Palpation: Normal Tenderness: Normal Skin: Normal Musculoskeletal: Left, Knee, Tender (she reports that even touching causes her pain. her pain seems out of proprtion to the findings. there is no apperant reason why she has so much pain. Knee incison clean and dry. no redness/ swelling of left knee. she able to do SLR. Knee 5- 65ROM. Stable. we also got XR twice after the surgery and there were no changes or complications noted. this was convyed to the patient. ) Psychiatric: Normal Mood Description: Calm Affect: Normal Speech Pattern: Clear, Appropriate - Laboratory and Diagnostics Result Diagrams: 05/08/17 05:45 05/07/17 05:25 Labs: Laboratory WBC 5.5 X10^3/uL (3.6-10.0) 05/08/17 05:45 RBC 2.75 X10^6/uL (3.5-5.4) L 05/08/17 05:45 Hgb 8.6 g/dL (12.0-16.0) L 05/08/17 05:45 Hct 25.2 % (36.0-47.0) L 05/08/17 05:45 MCV 91.5 fL (80.0-100.0) 05/08/17 05:45 MCH 31.2 pg (27.0-34.0) 05/08/17 05:45 MCHC 34.1 g/dL (33.0-35.0) 05/08/17 05:45 RDW 14.4 % (11.6-16.5) 05/08/17 05:45 Plt Count 236 X10^3/uL (150.0-450.0) 05/08/17 05:45 MPV 7.3 fL (7.4-11.0) L 05/08/17 05:45 Neut % 65.8 % (42.0-75.0) 05/08/17 05:45 Lymph % 22.7 % (21.0-51.0) 05/08/17 05:45 Hill % 8.1 % (0.0-13.0) 05/08/17 05:45 Eos % 2.5 % (0.9-2.9) 05/08/17 05:45 Baso % 0.9 % (0.2-1.0) 05/08/17 05:45 Neut # 3.6 x10^3/uL (2.2-4.8) 05/08/17 05:45 Lymph # 1.2 X10^3/uL (1.3-2.9) L 05/08/17 05:45 Hill # 0.4 x10^3/uL (0.3-0.8) 05/08/17 05:45 Eos # 0.1 x10^3/uL (0.0-0.2) 05/08/17 05:45 Baso # 0.1 X10^3/uL (0.0-0.1) 05/08/17 05:45 Absolute Nucleated RBC 0.0 /100WBC 05/08/17 05:45 Sodium 141 mmol/L (136-145) 05/07/17 05:25 Corrected Sodium TNP 05/07/17 05:25 Potassium 3.9 mmol/L (3.5-5.1) 05/07/17 05:25 Chloride 105 mmol/L (98-107) 05/07/17 05:25 Carbon Dioxide 29.1 mmol/L (21-32) 05/07/17 05:25 BUN 15 mg/dL (7-18) 05/07/17 05:25 Creatinine 0.79 mg/dL (0.55-1.02) 05/07/17 05:25 Est GFR (MDRD) Af Amer > 60 (>60) 05/07/17 05:25 Est GFR (MDRD) Non-Af > 60 (>60) 05/07/17 05:25 Glucose 90 mg/dL (65-99) 05/07/17 05:25 Calcium 8.2 mg/dL (8.5-10.1) L 05/07/17 05:25 Corrected Calcium 9.6 mg/dL (8.5-10.1) 05/07/17 05:25 Total Bilirubin 0.20 mg/dL (0.2-1.0) 05/07/17 05:25 AST 20 Units/L (15-37) 05/07/17 05:25 ALT 24 Units/L (12-78) 05/07/17 05:25 Alkaline Phosphatase 72 Units/L (46-116) 05/07/17 05:25 Total Protein 6.1 g/dL (6.4-8.2) L 05/07/17 05:25 Albumin 2.3 g/dL (3.4-5.0) L 05/07/17 05:25 Globulin 3.8 g/dL (2.5-4.5) 05/07/17 05:25 Albumin/Globulin Ratio 0.6 Ratio (1.1-2.1) L 05/07/17 05:25 - Plan (1) Status post total left knee replacement Status: Acute Plan: continue PT. regular dressing change. discussed with her that she needs to be on only PO pain med now. we will have her on scheduled Hydrocodoen 10 mg q 4, naurontin 100mg q 8 and ibuprofen 800 q 8 round the clock for her pain control. she understood and verbalized he same.
[2017-05-09] MEDS: COLACE CAP 100 MG PO SCH (20:23)
[2017-05-09] MEDS: ROXICODONE TAB 5 MG PO PRN (20:23)
[2017-05-09] MEDS: LOVENOX INJ 30 MG SYR SC SCH (20:25)
[2017-05-10] MEDS: NEURONTIN CAP 100 MG PO SCH ×3 (05:35→21:04)
[2017-05-10] MEDS: MOTRIN TAB 800 MG PO SCH ×3 (05:35→21:04)
[2017-05-10 06:53] LABS: ALANINE AMINOTRANSFERASE 35 Units/L (12-78); ALBUMIN 2.5 g/dL (3.4-5.0); ALKALINE PHOSPHATASE 179 Units/L (46-116); ASPARTATE AMINO TRANSFERASE 16 Units/L (15-37); BLOOD UREA NITROGEN 12 mg/dL (7-18); CALCIUM 8.5 mg/dL (8.5-10.1); CARBON DIOXIDE 26.1 mmol/L (21-32); CHLORIDE 108 mmol/L (98-107); COR CA(FOR HYPOALB) 9.7 mg/dL (8.5-10.1); CREATININE 0.79 mg/dL (0.55-1.02); SODIUM 141 mmol/L (136-145); TOTAL PROTEIN 6.4 g/dL (6.4-8.2); eGFR BLACK RACES > 60 (>60); eGFR NON BLACK RACES > 60 (>60)
[2017-05-10] MEDS: KLONOPIN TAB 1 MG PO SCH ×2 (09:04→21:04)
[2017-05-10] MEDS: ZOLOFT PO SCH ×2 (09:05→21:04)
[2017-05-10] MEDS: MILK OF MAGNESIA PO SCH (09:05)
[2017-05-10] MEDS: NORVASC TAB 10 MG PO SCH (09:05)
[2017-05-10] MEDS: ROXICODONE TAB 5 MG PO PRN ×2 (16:30→21:05)
[2017-05-10] MEDS ORDERED: ZOLOFT PO ONE (20:49)
[2017-05-10] MEDS: COLACE CAP 100 MG PO SCH (21:04)
[2017-05-10] MEDS: LOVENOX INJ 30 MG SYR SC SCH (21:05)
[2017-05-11] MEDS: MILK OF MAGNESIA PO SCH ×2 (01:34→09:33)
[2017-05-11] MEDS: MOTRIN TAB 800 MG PO SCH (05:42)
[2017-05-11] MEDS: NEURONTIN CAP 100 MG PO SCH (05:43)
[2017-05-11 06:22] LABS: BASOPHILS # (AUTO) 0.1 X10^3/uL (0.0-0.1); BASOPHILS % (AUTO) 0.8 % (0.2-1.0); EOSINOPHILS # (AUTO) 0.2 x10^3/uL (0.0-0.2); EOSINOPHILS % (AUTO) 2.6 % (0.9-2.9); HEMATOCRIT 28.5 % (36.0-47.0); HEMOGLOBIN 9.7 g/dL (12.0-16.0); LYMPHOCYTES # (AUTO) 1.7 X10^3/uL (1.3-2.9); LYMPHOCYTES % (AUTO) 23.6 % (21.0-51.0); MEAN CORPUSCULAR HEMOGLOBIN 31.4 pg (27.0-34.0); MEAN CORPUSCULAR HGB CONC 34.1 g/dL (33.0-35.0); MONOCYTES # (AUTO) 0.5 x10^3/uL (0.3-0.8); NEUTROPHILS # (AUTO) 4.7 x10^3/uL (2.2-4.8); PLATELET COUNT 400 X10^3/uL (150.0-450.0); RED CELL DISTRIBUTION WIDTH 14.1 % (11.6-16.5); WHITE BLOOD COUNT 7.1 X10^3/uL (3.6-10.0)
[2017-05-11] MEDS ORDERED: ZOLOFT PO ONE ×2 (08:34→08:41)
[2017-05-11] MEDS: ZOLOFT PO SCH (08:37)
[2017-05-11] MEDS: NORVASC TAB 10 MG PO SCH (08:37)
[2017-05-11] MEDS: KLONOPIN TAB 1 MG PO SCH (08:38)
[2017-05-11 09:00] VITALS: BP 149/67
[2017-05-11] MEDS: ROXICODONE TAB 5 MG PO PRN (09:33)
== END 2017-05-11 12:44 | disposition home health service (06) | DRG 950 ==
LOC: MED/SURG 11:30
PROVIDERS: ADMIT Internal Medicine; ATTEND Internal Medicine
DX: Z51.89 Encounter for other specified aftercare (principal); M17.12 Unilateral primary osteoarthritis, left knee; M25.562 Pain in left knee; R26.89 Other abnormalities of gait and mobility
CPT/HCPCS: 36415; 80053; 85025; 93971; 97535; A4216; A4222; J1170; J1650

== ENCOUNTER 2017-06-27 11:39 | Emergency (ER) | payer OTHER, MEDICARE ==
[2017-06-27 11:44] VITALS: BP 138/82; BMI 26.6
--- NOTE | 2017-06-27 13:33 | RAD ---
HISTORY: Status post fall. Left hip pain. Study: Left hip: Two views Comparison: None Findings: The pelvic ring is intact. Mild degenerative changes noted in the sacroiliac joints. The pubic rami are intact. The left hip shows mild acetabular spurring. The femoral head contour and femoral neck are intact. There appear to be numerous soft tissue calcifications within both sides of the gluteal regions, left greater than right. Some of this appears to extend down the left thigh. This appears to be soft ti ssue calcification and may be due to remote fat necrosis or injections. Clinical correlation is effie mmended. IMPRESSION: 1. Minimal degenerative change in the left hip. 2. No acute bony abnormalities are identified. 3. Moderately extensive soft tissue calcifications suggesting possible remote fat necrosis versus inj ected material. Clinical correlation recommended. Reported By:
--- NOTE | 2017-06-27 14:52 | DR.GENAD ---
HPI - PCP Primary Care Physician: carlton - HPI Comment HPI Comment: HISTORY BELOW. - Complaint/Symptoms Chief Complaint Doctors Comments: FELL 3 DAYS AGO AND INJURED LEFT HIP. LET KNEE REPLCEMENT, PATIENT STILL RECOVERING FROM THE PROCEDURE. NO OTHER PAIN REPORTED. WALK WITH CANE CURRENTLY. Chief Complaint:: pt stated she fell 3 days ago and landed on her left hip and it has been hurting everysince. - Nurses notes reviewed Nurses Notes Review: Yes - Source History Provided: Patient - Mode of Arrival Mode of Arrival: Ambulatory - Timing Onset of Chief Complaint: 06/24/17 Came on: Suddenly - Duration Duration: Constant Duration: Hours - Severity Severity: Moderate PMH - PMH Past Medical History: Yes Past Medical History: Anxiety, Arthritis, Depression, Hypertension Past Surgical History: Yes Surgical History: Appendectomy, Bowel Resection, COFFEE BLENDER Surgery, Hysterectomy, Ortho Surgery - Family History History of Family Medical Conditions: Yes Family Medical History: Diabetes Mellitus, Cancer, ND, Coronary Artery Disease, Sudden Cardiac - Social History Does patient currently use any type of tobacco product: No Have you used tobacco products in the last 12 months: No Type of Tobacco Use: None Does any household member use tobacco: No Alcohol Use: None Do you use any recreational Drugs:: No Lives With: Family Lives Where: Home - infectious screening In the last 2 months have you had wt loss of >10#?: NO Have you had fever, night sweats or hemotysis?: No Have you traveled outside the country in the last 6 months?: No Isolation: Standard ROS - Review of Systems Constitutional: No Symptoms Reported Eyes: No Symptoms Reported ENTM: No Symptoms Reported Respiratoy: Short of Breath (ON EXERTION). negative: Productive Cough, Non- Productive Cough, Wheezing, Hemoptysis Cardiovascular: negative: Chest Pain Gastrointestinal/Abdominal: negative: Abdominal Pain, Diarrhea, Nausea, Vomiting Genitourinary: negative: Dysuria, Hematuria Neurological: Problems Walking Musculoskeletal: Muscle Pain Integumentary: No Symptoms Reported Hematologic/Lymphatic: Easy Bleeding, Easy Bruising Endocrine: No Symptoms Reported PE - Vital Signs Vitals: Temperature 98.6 F Pulse Rate 80 Respiratory Rate 16 Blood Pressure [Right Arm] 149/67 Blood Pressure [Left Arm] 154/60 Blood Pressure 138/82 O2 Sat by Pulse Oximetry 100 - General Limitations: No Limitations General Appearance: Alert - Head Head Exam: Normal Inspection - Eyes Eye exam: Normal Appearance - ENT ENT Exam: Normal External Ear Exam External Ear Exam: Normal External Inspection TM/Canal Exam: Bilateral Normal Nose Exam: Normal Nose Exam Mouth Exam: Normal Inspection Throat Exam: Normal Inspection - Neck Neck Exam: Trachea Midline - Chest Chest Inspection: Symmetric Chest Wall Rise - Respiratory Respiratory Exam: Normal Lung Sounds Bilat Respiratory Exam: Bilateral Rhonchi, Lower Rhonchi - Cardiovascular Cardiovascular Exam: Regular Rate, Normal Rhythm, Normal Heart Sounds - Abdominal Exam Abdominal Exam: Normal Bowel Sounds, Soft. negative: Tenderness - Extremities Extremities Exam: Tenderness (TENDERNESS LT KNEE AND HIP. SEVEN.) - Back Back Exam: Normal Inspection - Neurologic Neurological Exam: Alert, Oriented X3 - Psychiatric Psychiatric Exam: Normal Affect, Normal Mood - Skin Skin Exam: Erythema MDM - Additional Information Additional Information Obtained From: Family - Differential Diagnosis Differential Diagnosis: FRACTURE, CONTUSION AND SPRAIN LT HIP. Course - Treatment Treatment: SEE ORDERS. - Education/Counseling Education/Counseling: Patient, Family, Education Educated On: Diagnosis, Needs for Follow Up ROR - XRAY XRAY Interpreted by: Radiologist XRAY Findings: REPORT DISCUSS WITH PATIENT AND . - Diagnosis Discharge Problem: Hip sprain Qualifiers: Encounter type: initial encounter Laterality: left Qualified Code(s): S73.102A - Unspecified sprain of left hip, initial encounter Hip pain Qualifiers: Laterality: left Qualified Code(s): M25.552 - Pain in left hip - Discharge Plan Disposition: 01 HOME, SELF-CARE Condition: Stable - Follow ups/Referrals Follow ups/Referrals: ROBEL SANDHU [Primary Care Provider] - 3 days - Instructions Instructions: Hip Pain, Joint Pain, [id number] Additional Instructions: RETURN TO ED IF WORSE.
[2017-06-27] MEDS ORDERED: TORADOL 60 MG VIAL IM ONE (15:10)
[2017-06-27] MEDS ORDERED: TORADOL 60 MG VIAL ONE (15:11)
== END 2017-06-27 15:40 | disposition home or self-care (01) ==
LOC: ER 12:18
DX: S73.102A Unspecified sprain of left hip, initial encounter (principal); M25.552 Pain in left hip; Z96.659 Presence of unspecified artificial knee joint; W19.XXXA Unspecified fall, initial encounter; Y92.9 Unspecified place or not applicable
CPT/HCPCS: 73501; 96372; 99282; 99283; J1885